=== PATIENT | male | born 1965 | race Caucasian/White ===

== ENCOUNTER 2017-11-30 17:09 | Inpatient (IN) ==
[2017-11-30] MEDS ORDERED: Vancomycin 1,500 MG in D5% in Water 250 ML IVPB STA (18:03)
[2017-11-30] MEDS ORDERED: Piperacillin/Tazobactam 3.375 GM in D5% in Water (Mini-Bag+) 100 ML IVPB ONE (18:03)
--- NOTE | 2017-11-30 18:08 | Emergency Department Note ---
Disposition Clinical Impression: Sepsis affecting skin, Cellulitis diffuse, face Disposition: Admitted As Inpatient Condition: Fair Time of Disposition: 19:02 General Adult HPI - General Chief complaint: ED General Medical Stated complaint: facial swelling, headache, chest pain, vision prob Time Seen by Provider: 11/30/17 17:49 Source: patient Limitations: no limitations Nursing Notes Reviewed: Yes Vital Signs Reviewed: Yes - History of Present Illness HPI Narrative: 52-year-old male complains of skin irritation to his face. Patient complains of swelling and redness across both cheeks and his nose. Patient states symptoms started 3 days ago. Patient noticed some irritation on the bridge of his nose where his glasses sit, and that changed to a painful rash across his face and below his lower eyelids over the next day. Patient states he went to his PCP and was directed to place topical antibiotic ointment and follow up in 48 hours if symptoms worsen. Patient comes in with complaints of facial pain, myalgias and fever. Patient states the pain to his face is 8/10 and worse with palpation. Patient has a history of one stent two years ago secondary to [place], currently not on anticoagulants Pain Scale: 8 - Related Data Home Medications Medication Instructions Recorded Confirmed Aspirin [Lo-Dose Aspirin EC] 81 mg PO DAILY 12/01/17 12/01/17 Atorvastatin Calcium [Lipitor] 80 mg PO DAILY 12/01/17 12/01/17 Pantoprazole Sodium [Protonix] 40 mg PO DAILY 12/01/17 12/01/17 Allergies Allergy/AdvReac Type Severity Reaction Status Date / Time No Known Allergies Allergy Unverified 06/24/16 02:24 All systems ED: reviewed and negative except as stated. Review of Systems: As Per HPI Constitutional: Reports: fever. Denies: chills Eyes: Denies: vision change ENT ED: Denies: congestion Cardiovascular: Denies: chest pain, palpitations Respiratory: Denies: cough, dyspnea, wheezes Gastrointestinal: Reports: nausea. Denies: abdominal pain, vomiting, diarrhea Genitourinary: Denies: urgency Musculoskeletal: Denies: back pain, neck pain Neurological: Reports: headache Endocrine: Reports: fatigue Past Medical History - Past Medical History Attestation: Yes The following information was validated with the patient. Source: patient, nursing notes reviewed Medical history: Reports: myocardial infarction Psychiatric history: Reports: no psych history - Social History Smoking Status: Current every day smoker Smokeless Tobacco Status: No Alcohol use: Reports: none Drug use: Reports: none Physical Exam Vital Signs Temperature 101.3 F H 11/30/17 17:25 Pulse Rate 125 11/30/17 17:25 Respiratory Rate 22 11/30/17 17:25 Blood Pressure 144/84 11/30/17 17:25 O2 Sat by Pulse Oximetry 95 11/30/17 17:25 Temperature 101.3 F H 11/30/17 17:25 Pulse Rate 104 11/30/17 18:11 Respiratory Rate 18 11/30/17 18:11 Blood Pressure 143/91 11/30/17 18:11 O2 Sat by Pulse Oximetry 96 11/30/17 18:11 Oxygen Delivery Oxygen Delivery Room Air 52-year-old male who is alert and oriented 3. GCS of 15. Patient is febrile to 101.3 degrees Fahrenheit, tachycardic with a respiratory rate of 22. SIRS positive, source of infection facial cellulitis. Area over bilateral cheeks and nose erythematous with singh crusting across the nose. There is tenderness to palpation - General Limitations: no limitations General appearance: alert, in no apparent distress - Head Head exam: atraumatic, normocephalic, normal inspection - Eye Eye exam: Present: normal appearance, PERRL, EOMI. Absent: scleral icterus, conjunctival injection, nystagmus, periorbital swelling - ENT ENT exam: normal exam, normal oropharynx, mucous membranes moist - Neck Neck exam: Present: normal inspection, full ROM, trachea midline - Chest Chest inspection: Present: normal inspection, symmetric chest wall rise - Respiratory Respiratory exam: Present: normal lung sounds bilaterally - Cardiovascular Cardiovascular exam: Present: tachycardia, normal heart sounds - Abdominal Exam Abdominal exam: Present: soft, Non-Tender. Absent: tenderness, distention, guarding, rebound, rigidity - Extremities Exam Extremities exam: Present: normal inspection, full ROM, normal capillary refill. Absent: tenderness, pedal edema - Back Exam Back exam: Present: normal inspection, full ROM. Absent: tenderness, CVA tenderness (R), CVA tenderness (L) - Neurological Exam Neurological exam: Present: alert, oriented X3 - Skin Skin exam: Present: warm, dry Course Vital Signs Temperature 101.3 F H 11/30/17 17:25 Pulse Rate 125 11/30/17 17:25 Respiratory Rate 22 11/30/17 17:25 Blood Pressure 144/84 11/30/17 17:25 O2 Sat by Pulse Oximetry 95 11/30/17 17:25 Temperature 98.4 F 12/01/17 13:01 Pulse Rate 74 12/01/17 13:01 Respiratory Rate 16 12/01/17 13:01 Blood Pressure 117/80 12/01/17 13:01 O2 Sat by Pulse Oximetry 95 12/01/17 13:01 Oxygen Delivery Oxygen Delivery Room Air Medical Decision Making - MDM Narrative Medical decision making narrative: Cellulitis to the face with underlying sepsis secondary to SIRS positivity with fever, tachycardia and tachypnea. Elevated WBC of 16.6 Cultures have been drawn, patient started on vancomycin and Zosyn. Labs drawn the lactate, CBC and chemistries to check for severity of sepsis. Lactic acid was negative for elevation. Patient is hyponatremic at 133 and was started on IV fluid hydration as well. Pt given 1 gram tylenol for pain control which appears to be sufficient at the time of reassessment. Pt currently has no complaints and is stable. Current plan is for admission which patient accepts. Dr. Lopez has accepted for admission 1839 hrs - Lab Data Result diagrams: 12/01/17 02:29 12/01/17 02:29 Lab Results 11/30/17 11/30/17 11/30/17 Range/Units 17:40 17:40 17:40 WBC 16.6 H (4.3-11.1) K/mcL RBC 5.23 (4.19-5.50) M/mcL Hgb 16.2 (12.9-16.9) g/dL Hct 46.8 (37.5-50.1) % MCV 89.5 (83.0-100.0) fL MCH 31.0 (28.0-33.3) pg MCHC 34.6 (31.6-35.5) g/dL RDW 12.5 (11.5-14.5) % Plt Count 209 (140-400) K/mcL MPV 11.1 (9.4-12.4) fL Immature Gran % 0.4 (0-4) % Seg Neutrophils % 78.8 % Lymphocytes % 10.5 % Monocytes % 10.0 % Eosinophils % 0.1 % Basophils % 0.2 % Neutrophils # 13.1 H (1.6-8.9) K/mcL Lymphocytes # 1.8 (0.6-4.6) K/mcL Monocytes # 1.7 H (0.0-1.3) K/mcL Eosinophils # 0.0 (0.0-0.6) K/mcL Basophils # 0.0 (0.0-0.2) K/mcL Sodium 133 L (136-145) mEq/L Potassium 3.9 (3.5-5.1) mEq/L Chloride 99 (98-107) mEq/L Carbon Dioxide 26 (23-29) mEq/L BUN 7 (6-20) mg/dL Creatinine 0.66 L (0.70-1.30) mg/dL Est GFR ( Amer) > 60 (> 60) Est GFR (Non-Af Amer) > 60 (> 60) BUN/Creatinine Ratio 11 (6-26) Glucose 107 H (70-105) mg/dL Calculated Osmolality 274 L (280-300) Lactic Acid 1.0 (0.5-2.2) mmol/L Calcium 9.5 (8.6-10.3) mg/dL Phosphorus 2.9 (2.7-4.5) mg/dL Magnesium 1.7 (1.6-2.6) mg/dL Total Bilirubin 1.0 (0.3-1.0) mg/dL Direct Bilirubin 0.2 (0.0-0.2) mg/dL Indirect Bilirubin 0.8 (0.0-1.2) mg/dL AST 18 (13-39) Units/L ALT 24 (7-52) Units/L Alkaline Phosphatase 98 (34-104) Units/L Troponin I (< 0.04) ng/mL Serum Total Protein 7.7 (6.4-8.9) g/dL Albumin 4.2 (3.5-5.7) g/dL Globulin 3.5 (2.4-3.5) g/dL Albumin/Globulin Ratio 1.2 (1.1-2.2) 11/30/17 Range/Units 17:40 WBC (4.3-11.1) K/mcL RBC (4.19-5.50) M/mcL Hgb (12.9-16.9) g/dL Hct (37.5-50.1) % MCV (83.0-100.0) fL MCH (28.0-33.3) pg MCHC (31.6-35.5) g/dL RDW (11.5-14.5) % Plt Count (140-400) K/mcL MPV (9.4-12.4) fL Immature Gran % (0-4) % Seg Neutrophils % % Lymphocytes % % Monocytes % % Eosinophils % % Basophils % % Neutrophils # (1.6-8.9) K/mcL Lymphocytes # (0.6-4.6) K/mcL Monocytes # (0.0-1.3) K/mcL Eosinophils # (0.0-0.6) K/mcL Basophils # (0.0-0.2) K/mcL Sodium (136-145) mEq/L Potassium (3.5-5.1) mEq/L Chloride (98-107) mEq/L Carbon Dioxide (23-29) mEq/L BUN (6-20) mg/dL Creatinine (0.70-1.30) mg/dL Est GFR ( Amer) (> 60) Est GFR (Non-Af Amer) (> 60) BUN/Creatinine Ratio (6-26) Glucose (70-105) mg/dL Calculated Osmolality (280-300) Lactic Acid (0.5-2.2) mmol/L Calcium (8.6-10.3) mg/dL Phosphorus (2.7-4.5) mg/dL Magnesium (1.6-2.6) mg/dL Total Bilirubin (0.3-1.0) mg/dL Direct Bilirubin (0.0-0.2) mg/dL Indirect Bilirubin (0.0-1.2) mg/dL AST (13-39) Units/L ALT (7-52) Units/L Alkaline Phosphatase (34-104) Units/L Troponin I < 0.03 (< 0.04) ng/mL Serum Total Protein (6.4-8.9) g/dL Albumin (3.5-5.7) g/dL Globulin (2.4-3.5) g/dL Albumin/Globulin Ratio (1.1-2.2) Attestation Statement - Attestation Attestation: I, David Hameed, examined this patient and my medical decision-making was reviewed with the PROFESSIONAL DRIVER/PA/Advanced Practice Nurse/Resident Physician. I agree with the documented findings, disposition and treatment plan as described except to the extent set forth below. 52-year-old male presents emergency Department with concerns of bilateral facial swelling, tachycardia, fever, nausea, vomiting. Patient states symptoms started with a small abrasion and erythema to the anterior nose however it soon spread to redness of the bilateral face. Symptoms do not involve the orbits and he has no pain with extraocular range of motion. Patient does have a generalized headache which has gradually progressed. He denies significant neck pain. No other cough, shortness of breath, diarrhea or other rashes. Patient likely has a cellulitis of his face, he meets SIRS criteria and will be admitted to the hospital on IV antibiotics.
[2017-11-30 18:13] LABS: Basophils % 0.2 %; Eosinophils % 0.1 %; Hematocrit 46.8 % (37.5-50.1); Hemoglobin 16.2 g/dL (12.9-16.9); Immature Granulocytes % 0.4 % (0-4); Lymphocytes # 1.8 K/mcL (0.6-4.6); Lymphocytes % 10.5 %; Mean Corpuscular HGB Conc 34.6 g/dL (31.6-35.5); Mean Corpuscular Volume 89.5 fL (83.0-100.0); Mean Platelet Volume 11.1 fL (9.4-12.4); Monocytes # 1.7 K/mcL (0.0-1.3); Neutrophils # 13.1 K/mcL (1.6-8.9); Platelet Count 209 K/mcL (140-400); Red Blood Count 5.23 M/mcL (4.19-5.50); Red Cell Distribution Width 12.5 % (11.5-14.5); Segmented Neutrophils % 78.8 %
[2017-11-30] MEDS: 0.9 % Sodium Chloride 1,000 ML IVC SCH ×2 (18:14→18:44)
[2017-11-30] MEDS ORDERED: Piperacillin/Tazobactam 3.375 GM in Water for inj. (sterile) 20 ML IVP ONE (18:26)
[2017-11-30 18:28] LABS: Alanine Aminotransferase 24 Units/L (7-52); Albumin 4.2 g/dL (3.5-5.7); Albumin/Globulin Ratio 1.2 (1.1-2.2); Alkaline Phosphatase 98 Units/L (34-104); Aspartate Amino Transferase 18 Units/L (13-39); BUN/Creatinine Ratio 11 (6-26); Bilirubin,Direct 0.2 mg/dL (0.0-0.2); Bilirubin,Indirect 0.8 mg/dL (0.0-1.2); Blood Urea Nitrogen 7 mg/dL (6-20); Calcium 9.5 mg/dL (8.6-10.3); Carbon Dioxide 26 mEq/L (23-29); Chloride 99 mEq/L (98-107); Globulin 3.5 g/dL (2.4-3.5); Glucose 107 mg/dL (70-105); Magnesium 1.7 mg/dL (1.6-2.6); Osmolality,Calculated 274 (280-300); Phosphorous 2.9 mg/dL (2.7-4.5); Potassium 3.9 mEq/L (3.5-5.1); Sodium 133 mEq/L (136-145); Total Protein 7.7 g/dL (6.4-8.9); eGFR For African Americans > 60 (> 60); eGFR For Non-African Americans > 60 (> 60)
[2017-11-30] MEDS ORDERED: Naloxone 0.4 MG/ML INJ IVP PRN (21:47)
[2017-11-30] MEDS ORDERED: Acetaminophen 325 MG TABLET PO PRN (21:47)
[2017-11-30] MEDS ORDERED: Ibuprofen 400 MG TABLET PO PRN (21:47)
[2017-11-30] MEDS ORDERED: *HR* Promethazine 25 MG/ML VIAL IVP PRN (21:47)
[2017-11-30] MEDS ORDERED: Vancomycin 1,250 MG in D5% in Water 250 ML IVPB SCH (22:00)
--- NOTE | 2017-11-30 22:11 | Internal Med History&Physical ---
Date of Encounter: 11/30/17 Time of Encounter: 21:30 Assessment and Plan (1) Cellulitis diffuse, face Current visit: Yes Status: Acute Acute cellulitis of the face that the pt. reports began on as irritation on his nose and spread to bilateral cheeks and upper lip. Pts. affected areas are erythematous and edematous. Pt. denies previous occurrence on face but reports previous cellulitis. PCP told pt. to apply topical abx ointment which did not help. CTA of the head and neck ordered. IVPB vancomycin pharmacy dosing and Zosyn 3.375 gm to 8 for infection coverage. Blood cultures 2. Urine culture. Abx coverage will be adjusted based on culture results if warranted. Alternate Tylenol and Motrin for fever control. Patient denies need for pain medication on exam. Urine tox screen ordered. Pt. discussed w/Dr. Quarles who is in agreement w/plan of care. Pt. is high risk for further morbidity and sepsis based on current sx, sepsis criteria, chest pain and hx of previous MT, and risk factors (hx and current tobacco abuse). Inpatient. (2) Sepsis affecting skin Current visit: Yes Status: Acute Sepsis criteria w/ WBC of 16.6, HR of 125, RR 22, temp of 101.3F, and infection from cellulitis of the face. Pt. given two 1L 0.9 NS IV fluid boluses in ED. Will continue IV fluids @125 mL/HR. Alternate Tylenol and Motrin for fever control. Pt. states on exam he doesn't want pain medication. Blood cultures x2. Urine culture. Urine tox screen. IVPB vancomycin with pharmacy dosing and Zosyn 3.375 gm every 8 hours for infection coverage. Will adjust abx coverage based on culture results. Continuous cardiac telemetry. Supplemental O2 w/titration and SpO2 monitoring. Monitor pt. and f/u labs. (3) Chest pain Current visit: Yes Status: Acute Acute chest pain that pt. describes as intermittent but cannot describe quality of the pain. Pt. has hx of previous MT in September 2014 w/stent placement x1. Initial troponin <0.03. Will trend x2. Aspirin. Nitroglycerin PRN. No recent cardiac work-up. Echocardiogram ordered. Continuous cardiac telemetry. Supplemental O2 w/titration and SpO2 monitoring. EKG today shows sinus rhythm with possible inferior myocardial infarction, probably old. Will consult cardiology if troponins or echocardiogram abnormal. Qualifiers: Chest pain type: other chest pain Qualified Code(s): R07.89 - Other chest pain; R07.8 - Other chest pain (4) Tobacco abuse Current visit: Yes Status: Chronic Hx of chronic tobacco abuse. Pt. reports smoking 1 PPD w/no intention of quitting currently. 14 mg nicotine patch ordered. (5) Previous myocardial infarction older than 8 weeks Current visit: Yes Status: Chronic Hx of previous MT in September 2014 w/stent placement x1. Pt. reports current intermittent chest pain. Continuous cardiac telemetry. Continue aspirin therapy. Echocardiogram ordered. EKG today shows sinus rhythm with possible inferior myocardial infarction, probably old. Initial troponin <0.03. Will trend x2. Will consult cardiology if troponin and/or echo results abnormal. (6) DVT prophylaxis Current visit: Yes Status: Acute Lovenox 40 mg 0600 daily for DVT prophylaxis. Monitor pt. for signs of bleeding. Internal Medicine - H&P: HPI Chief complaint: Facial swelling and pain Admitted From: Emergency Dept Plans for Post Hospital Care: Home History of present illness: Mr. Garcia is a 52 year old male with medical hx of previous myocardial infarction in September 2014 presents with the ED with chief complaint of facial swelling and pain, fever, and intermittent chest pain that began on . Patient states he noticed irritation on the bridge of his nose where his glasses rest which seems prudent to bilateral cheeks and around to his upper lip. Patient's PCP instructed him to use topical antibiotic ointment, but symptoms only worsened. Pain is 8/10 on palpation. Patient reports history of stent placement 1 from previous MT. Patient reports fever, SOB, and weakness but denies recent illness, chills, nausea, vomiting, diarrhea, constipation, changes in vision, palpitations, cough, abdominal pain, unusual bleeding, dizziness, lightheadedness, numbness, tingling, pre-syncope, or syncope. Past Med Surg Social Fam HX - Past Medical History Source: patient, old records reviewed Medical history: myocardial infarction (September 2014 w/stent x1) Psychiatric history: no psych history - Past Surgical History Surgical History: angioplasty/stent (x1) - Social History Smoking Status: Current every day smoker Packs per day: 1 PPD Smokeless Tobacco Status: No Alcohol use: none Drug use: none Current living situation: Home Activity Level: Independent ambulation Recent Out of Country Travel Within the Last 8 Weeks: No Exposure or Possible Exposure to Illness During Travel: No - Family History Father History Unknown: Yes Adopted: Yes Mother History Unknown: Yes Adopted: Yes Internal Medicine - H&P: Meds 3 Allergy/AdvReac Type Severity Reaction Status Date / Time No Known Allergies Allergy Unverified 06/24/16 02:24 All Systems PM: A 10-system review of systems was performed and is negative for pertinent findings except as documented above in the HPI. - Constitutional Constitutional: as per HPI, fever(s), weakness, no chills, no night sweats - EENT Eyes: no change in vision, no discharge, no pain, no photophobia Ears: no ear discharge, no ear pain, no tinnitus Nose, mouth and throat: as per HPI, facial pain, lip swelling, nose pain, no dysphagia, no nasal discharge, no neck pain, no sore throat - Breasts Breasts: as per HPI - Cardiovascular Cardiovascular ROS IM: no chest pain, no diaphoresis, no dyspnea, no lightheadedness, no palpitations, no syncope - Respiratory Respiratory: no cough, no dyspnea, no wheezing, no excessive phlegm production - Gastrointestinal Gastrointestinal: no abdominal pain, no diarrhea, no hematemesis, no hematochezia, no melena, no nausea, no vomiting - Genitourinary Genitourinary ROS male: as per HPI - Musculoskeletal Musculoskeletal ROS IM: no numbness, no tingling - Integumentary Integumentary IM: as per HPI, erythema (Bilateral cheeks, nose, and upper lip), no rash, no unusual bruising - Neurological Neurological ROS: as per HPI, weakness, no confusion, no convulsions, no focal weakness, no numbness, no tingling, no tremor(s) - Psychiatric Psychiatric: as per HPI - Endocrine Endocrine IM: as per HPI - Hematologic/Lymphatic Hematologic/Lymphatic: no easy bruising - Allergic/Immunologic Allergic/Immunologic: as per HPI - Constitutional Vitals: Temp Pulse Resp BP Pulse Ox 98.6 F 94 15 119/73 94 11/30/17 19:46 11/30/17 19:46 11/30/17 19:46 11/30/17 19:46 11/30/17 19:46 General appearance: Present: mild distress (Facial swelling and tenderness), A& O X 3, obese, answers questions appropriately - Head Head exam: Present: atraumatic, normocephalic Additional comments: Patient has facial edema and erythema of the bilateral cheeks, nose, and upper lip. - Eye Eye exam: Present: PERRL, conjuntiva pink, sclera anicteric Pupils: Present: PERRL - ENT ENT exam: Present: normal exam - Neck Neck exam general surgery: Present: normal inspection, supple, trachea midline. Absent: lymphadenopathy - Respiratory Respiratory exam: Present: CTAB. Absent: accessory muscle use, rales, rhonchi, wheezes - Cardiovascular Cardiovascular exam: Present: +S1, +S2, tachycardia. Absent: diastolic murmur, gallop, rubs, systolic murmur - GI/Abdominal GI/Abdominal exam: Present: normal bowel sounds, soft, no peritoneal signs. Absent: distended, tenderness - Rectal Rectal exam: Present: deferred - Additional comments: exam deferred. - Extremities Exam Extremities exam: Present: warm, radial pulses palpable and symmetrical. Absent : calf tenderness, cyanotic, pedal edema - Back Exam Back exam: Present: normal inspection - Neurological Exam Neurological exam: Present: alert, CN II-XII intact, oriented X3, no focal deficits. Absent: pronater drift, facial droop, speech deficit - Psychiatric Psychiatric exam: Present: flat affect - Skin Skin exam: Present: dry, erythema (Erythema and edema of the bilateral cheeks, nose, and upper lip), intact Internal Med - H&P Results - Labs CBC & Chem 7: 11/30/17 17:40 11/30/17 17:40 - EKG Data EKG shows normal: sinus rhythm Rate: tachycardia - EKG Data Prior EKG available for review: no Interpretation IM: suggestive of ischemia EKG comments: 11/30/17 22:23 EKG dated 11/30/17 shows sinus rhythm and possible inferior myocardial infarction, probably old.
[2017-11-30] MEDS ORDERED: Nitroglycerin 0.4 MG TAB.SUBL SL PRN (22:27)
[2017-11-30 23:30] LABS: Bilirubin,Urine Negative (Negative); Blood,Urine Negative (Negative); Clarity,Urine Clear (Clear); Color,Urine Yellow (Yellow); Glucose,Urine (UA) Normal (Normal); Ketones,Urine Negative (Negative); Leukocyte Esterase,Urine Negative (Negative); Nitrite,Urine Negative (Negative); Protein,Urine Negative (Neg-Trace); Specific Gravity,Urine < 1.005 (1.010-1.025); Urobilinogen,Urine Normal (Normal)
[2017-12-01] MEDS ORDERED: Piperacillin/Tazobactam 3.375 GM/200 ML BAG IVPB SCH
[2017-12-01] MEDS: Aspirin Enteric Coated 81 MG Tablet PO SCH ×2 (01:32→15:18)
[2017-12-01] MEDS: Nicotine 14 MG PATCH.TD24 TD SCH ×2 (01:33→10:11)
[2017-12-01] MEDS: 0.9 % Sodium Chloride 1,000 ML IVC SCH ×3 (01:34→11:46)
[2017-12-01] MEDS: Piperacillin/Tazobactam 3.375 GM/200 ML BAG IVPB SCH ×3 (02:17→18:22)
[2017-12-01 02:40] LABS: Basophils % 0.3 %; Eosinophils # 0.1 K/mcL (0.0-0.6); Eosinophils % 0.5 %; Hematocrit 41.6 % (37.5-50.1); Immature Granulocytes % 0.3 % (0-4); Lymphocytes # 1.9 K/mcL (0.6-4.6); Lymphocytes % 16.9 %; Mean Corpuscular HGB Conc 34.1 g/dL (31.6-35.5); Mean Corpuscular Hemoglobin 31.1 pg (28.0-33.3); Mean Platelet Volume 10.7 fL (9.4-12.4); Monocytes # 1.4 K/mcL (0.0-1.3); Monocytes % 12.7 %; Neutrophils # 7.7 K/mcL (1.6-8.9); Platelet Count 176 K/mcL (140-400); Red Blood Count 4.57 M/mcL (4.19-5.50); Red Cell Distribution Width 12.7 % (11.5-14.5); Segmented Neutrophils % 69.3 %
[2017-12-01 02:42] LABS: Hemoglobin 14.2 g/dL (12.9-16.9)
[2017-12-01 03:00] LABS: Alanine Aminotransferase 18 Units/L (7-52); Albumin 3.6 g/dL (3.5-5.7); Albumin/Globulin Ratio 1.3 (1.1-2.2); Alkaline Phosphatase 77 Units/L (34-104); Aspartate Amino Transferase 15 Units/L (13-39); BUN/Creatinine Ratio 10 (6-26); Bilirubin,Total 0.8 mg/dL (0.3-1.0); Blood Urea Nitrogen 7 mg/dL (6-20); Calcium 8.6 mg/dL (8.6-10.3); Carbon Dioxide 26 mEq/L (23-29); Chloride 105 mEq/L (98-107); Chol/HDL Ratio 4.2 (0-4.9); Cholesterol 104 mg/dL (< 200); Globulin 2.8 g/dL (2.4-3.5); Glucose 106 mg/dL (70-105); HDL Cholesterol 25 mg/dL (40-59); LDL Cholesterol,Calculated 58 mg/dL (0-99); Osmolality,Calculated 286 (280-300); Potassium 3.9 mEq/L (3.5-5.1); Sodium 139 mEq/L (136-145); Total Protein 6.4 g/dL (6.4-8.9); Triglycerides 106 mg/dL (< 150); eGFR For African Americans > 60 (> 60); eGFR For Non-African Americans > 60 (> 60)
[2017-12-01 04:22] LABS: Amphetamine Screen,Urine Negative ng/mL (Cutoff=1000); Barbiturate Screen,Urine Negative ng/mL (Cutoff=200); Benzodiazepines Screen,Urine Negative ng/mL (Cutoff=200); Cannabinoid Screen,Urine Negative ng/mL (Cutoff = 50); Cocaine Screen,Urine Negative ng/mL (Cutoff= 300); Opiate Screen,Urine Negative ng/mL (Cutoff=300); Phencyclidine Screen,Urine Negative ng/mL (Cutoff=25)
[2017-12-01] MEDS: Vancomycin 1,250 MG in D5% in Water 250 ML IVPB SCH ×2 (05:58→18:21)
[2017-12-01] MEDS: *HR* Enoxaparin 40 MG/0.4 ML SYRINGE SQ SCH (10:10)
--- NOTE | 2017-12-01 15:48 | Internal Med Progress Note ---
Date of Encounter: 12/01/17 Time of Encounter: 14:00 - Assessment and plan (1) Sepsis affecting skin Current Visit: Yes Status: Acute Assessment and plan: Discomfort. On arrival. Elevated white count, tachycardia, tachypnea and fever with known cellulitis to face. Was given IV fluid boluses in the emergency room. Blood cultures were drawn 2. Tachypnea and tachycardia have resolved. Patient has been afebrile. White count is resolving, 11.2 today. Lactic acid is within normal limits. Continue IV vancomycin with pharmacy dosing Continue IV Zosyn Continue telemetry Narrow on antibiotics in regards to culture (2) Cellulitis diffuse, face Current Visit: Yes Status: Acute Assessment and plan: Patient reports redness and swelling 3 days ago. States it began as just a little irritation on his nose and spread bilateral cheeks and upper lip. Area of cellulitis extends from eyes to upper lip. Nothing on chin and her forehead. Pelvic care physician and instructed patient to apply antibiotic ointment to his face. He received no improvement. Soft tissue neck CT and face CT negative for abscess or fluid collections. Continue IV vancomycin and Zosyn as stated above. Pain control. Face CT 12/01/17 21:59 IMPRESSION: Extensive facial soft tissue swelling without evidence for abscess. D/ / Cliff Sandhu MD / Cliff Sandhu MD Interpreting Provider: Cliff Sandhu MD Soft Tissue Neck CT 12/01/17 21:59 IMPRESSION: Consistent with facial cellulitis. No fluid collection or deep tissue involvement. D/ / Fabrice Ramirez MD / Fabrice Ramirez MD Interpreting Provider: Fabrice Ramirez MD (3) Chest pain Current Visit: Yes Status: Acute Assessment and plan: Patient with intermittent left chest pain. no radiation. No nausea or vomiting, no diaphoresis or shortness of breath. It is not reproducible with palpation, movement, or deep inspiration. [place] in 2010 with stent placement. Currently troponins are negative, no chest x-ray was ordered. EKG has not been completed. Stress ordered for morning. Cardiac diet Continue telemetry EKG pending Chest x-ray pending Echocardiogram completed and pending. Qualifiers: Chest pain type: other chest pain Qualified Code(s): R07.89 - Other chest pain; R07.8 - Other chest pain (4) DVT prophylaxis Current Visit: Yes Status: Acute Assessment and plan: Lovenox subcutaneous (5) Tobacco abuse Current Visit: Yes Status: Chronic Assessment and plan: Smoking cessation counseling completed. Nicotine patch ordered for inpatient. (6) Previous myocardial infarction older than 8 weeks Current Visit: Yes Status: Chronic Assessment and plan: [place] in September, with stent placement. Chest pain onset yesterday, lasted approximately 10 minutes. Pain was midsternal with no radiation. Patient is a very poor historian unable to describe the quality of the pain. Echocardiogram completed today. EKG has been ordered. Patient denies pain now. No aggravating factor, alleviating factor was arrest. Continue telemetry Continue aspirin, patient is not on a beta leland. Nitroglycerin for chest pain. Monitor labs and vitals. - Time Spent With Patient less than 15 minutes - Subjective Interval history: The patient was seen and assessed at bedside at 1400. He does not appear to be in any distress, however he is noticeably uncomfortable. He is lying with a wet washcloth over his eyes. Speech is difficult to understand due to lip swelling. Patient denies vision changes, neck pain. He denies headache, dizziness, abdominal pain, chest pain, nausea, vomiting or diarrhea. He reports that his pain is well controlled and is aware that he may ask for more pain medication if needed. - Constitutional Vitals: Temp Pulse Resp BP Pulse Ox 98.4 F 74 16 117/80 95 12/01/17 13:01 12/01/17 13:01 12/01/17 13:01 12/01/17 13:01 12/01/17 13:01 General appearance: Present: cooperative, mild distress (Facial swelling and tenderness), A&O X 3, pleasant, obese, answers questions appropriately - Head Head exam: Present: atraumatic, normal inspection, normocephalic - Eye Eye exam: Present: normal appearance, conjuntiva pink, sclera anicteric - Neck Neck exam general surgery: Present: supple, trachea midline. Absent: lymphadenopathy, tenderness - Respiratory Respiratory exam: Present: CTAB. Absent: accessory muscle use, chest wall tenderness, rales, respiratory distress, rhonchi, wheezes - Cardiovascular Cardiovascular exam: Present: RRR, +S1, +S2. Absent: diastolic murmur, gallop, rubs, systolic murmur - GI/Abdominal GI/Abdominal exam: Present: normal bowel sounds, soft. Absent: distended, hepatomegaly, tenderness - Extremities Exam Extremities exam: Present: normal capillary refill, normal inspection, warm, radial pulses palpable and symmetrical. Absent: calf tenderness, cyanotic, pedal edema - Neurological Exam Neurological exam: Present: alert, oriented X3, no focal deficits. Absent: facial droop, speech deficit - Skin Skin exam: Present: dry, intact, normal color, warm. Absent: rash Internal Medicine: Result - Labs CBC & Chem 7: 12/01/17 02:29 12/01/17 02:29 Labs: Short CBC 12/01/17 Range/Units 02:29 WBC 11.2 H (4.3-11.1) K/mcL Hgb 14.2 D (12.9-16.9) g/dL Hct 41.6 (37.5-50.1) % Plt Count 176 (140-400) K/mcL Neutrophils # 7.7 (1.6-8.9) K/mcL BMP 12/01/17 02:29 Sodium 139 Potassium 3.9 Chloride 105 Carbon Dioxide 26 BUN 7 Creatinine 0.70 Glucose 106 H Calcium 8.6 Cardiac Enzymes 11/30/17 12/01/17 Range/Units 23:51 02:29 Troponin I < 0.03 < 0.03 (< 0.04) ng/mL Liver Function 12/01/17 Range/Units 02:29 Total Bilirubin 0.8 (0.3-1.0) mg/dL AST 15 (13-39) Units/L ALT 18 (7-52) Units/L Alkaline Phosphatase 77 (34-104) Units/L Albumin 3.6 (3.5-5.7) g/dL Urine 11/30/17 Range/Units 23:08 Urine Color Yellow (Yellow) Urine Clarity Clear (Clear) Urine pH 7.0 (5.0-8.0) pH Units Ur Specific [place] < 1.005 L (1.010-1.025) Urine Protein Negative (Neg-Trace) mg/dL Urine Glucose (UA) Normal (Normal) mg/dL - Impressions Impressions Face CT 12/01/17 21:59 IMPRESSION: Extensive facial soft tissue swelling without evidence for abscess. D/ / Cliff Sandhu MD / Cliff Sandhu MD Interpreting Provider: Cliff Sandhu MD Soft Tissue Neck CT 12/01/17 21:59 IMPRESSION: Consistent with facial cellulitis. No fluid collection or deep tissue involvement. D/ / Fabrice Ramirez MD / Fabrice Ramirez MD Interpreting Provider: Fabrice Ramirez MD Consult Discharge Plan - Plan Referrals: NONE,PCP [Primary Care Provider] -
[2017-12-02] MEDS: 0.9 % Sodium Chloride 1,000 ML IVC SCH ×3 (00:02→15:24)
[2017-12-02] MEDS: Piperacillin/Tazobactam 3.375 GM/200 ML BAG IVPB SCH ×3 (02:06→19:35)
[2017-12-02] MEDS: Vancomycin 1,250 MG in D5% in Water 250 ML IVPB SCH (05:01)
[2017-12-02] MEDS: *HR* Enoxaparin 40 MG/0.4 ML SYRINGE SQ SCH (05:02)
[2017-12-02 05:48] LABS: Basophils % 0.4 %; Eosinophils # 0.2 K/mcL (0.0-0.6); Eosinophils % 1.7 %; Hematocrit 42.3 % (37.5-50.1); Hemoglobin 14.2 g/dL (12.9-16.9); Immature Granulocytes % 0.4 % (0-4); Lymphocytes % 19.8 %; Mean Corpuscular HGB Conc 33.6 g/dL (31.6-35.5); Mean Corpuscular Hemoglobin 30.7 pg (28.0-33.3); Mean Corpuscular Volume 91.6 fL (83.0-100.0); Mean Platelet Volume 11.3 fL (9.4-12.4); Monocytes # 1.2 K/mcL (0.0-1.3); Monocytes % 11.8 %; Neutrophils # 6.8 K/mcL (1.6-8.9); Platelet Count 183 K/mcL (140-400); Red Blood Count 4.62 M/mcL (4.19-5.50); Red Cell Distribution Width 12.8 % (11.5-14.5); Segmented Neutrophils % 65.9 %
[2017-12-02 06:05] LABS: Alanine Aminotransferase 20 Units/L (7-52); Albumin 3.6 g/dL (3.5-5.7); Albumin/Globulin Ratio 1.3 (1.1-2.2); Alkaline Phosphatase 80 Units/L (34-104); Aspartate Amino Transferase 16 Units/L (13-39); BUN/Creatinine Ratio 10 (6-26); Bilirubin,Total 0.5 mg/dL (0.3-1.0); Blood Urea Nitrogen 8 mg/dL (6-20); Carbon Dioxide 27 mEq/L (23-29); Chloride 108 mEq/L (98-107); Globulin 2.8 g/dL (2.4-3.5); Glucose 91 mg/dL (70-105); Osmolality,Calculated 288 (280-300); Sodium 140 mEq/L (136-145); Total Protein 6.4 g/dL (6.4-8.9); eGFR For African Americans > 60 (> 60); eGFR For Non-African Americans > 60 (> 60)
[2017-12-02] MEDS ORDERED: Vancomycin 1,500 MG in D5% in Water 250 ML IVPB SCH (06:45)
[2017-12-02] MEDS: Aspirin Enteric Coated 81 MG Tablet PO SCH (08:25)
[2017-12-02] MEDS: Nicotine 14 MG PATCH.TD24 TD SCH (08:26)
--- NOTE | 2017-12-02 11:58 | Infectious Disease Consult ---
Date of Encounter: 12/02/17 Time of Encounter: 11:55 Assessment and Plan (1) Sepsis affecting skin Status: Resolved Assessment and plan: The patient had four SIRS criteria on admission. Likely secondary to facial cellulitis. Improved. Tachycardia, tachypnea, and leukocytosis have resolved. The patient has been afebrile x 48 hours. Blood cultures drawn 11/30/17 are NGTD x 2 sets. (2) Cellulitis diffuse, face Status: Acute Assessment and plan: Location: Bilateral cheeks, nose, periorbital region. Causative organism unclear. Etiology unclear: sinusitis vs. intra-nasal sores vs. other. Appears improved from patient's report. CT of the face and neck shows extensive soft tissue swelling, but no abscess or orbital cellulitis. Blood cultures are NGTD so far. Continue Vancomycin IV. Pharmacy to dose. Goal trough ~10. The patient continues to be subtherapeutic, which could be contributing to his slow response to antibiotic therapy. Dose adjusted by pharmacy. Continue Zosyn 3.375 grams IV Q8H. Duration of treatment depends on the clinical picture. Monitor renal function and for drug toxicity and dose-adjust antibiotics. (3) Tobacco abuse Status: Chronic Infectious Disease HPI - Data of Consult Patient: new to practice Consult date: 12/02/17 Requesting Physician: Lucho Rodriguez Primary Care Provider: PCP NONE - Consult Narrative Reason for consult: Facial cellulitis History of present illness: Mr. Garcia is a 52 year old male with a past medical history of NC. The patient was admitted to the hospital 11/30/17 for facial cellulitis. We are consulted for antibiotic recommendations for facial cellulitis. Briefly, the patient is a 52 year old male with a past medical history as stated below. He reports that last Saturday evening he noticed that the bridge of his nose was a little sore. He thought it may be due to his glasses so he saw his forensic medical examiner on that gave him new glasses pads. He states the pain worsened and spread to his entire nose so on Saturday, he attempted to see his PCP, but was told by the nurse to put triple ATB ointment on it and if it did not improve to come back for an appt with the doctor. The pain continued to worsen and the patient developed redness and swelling of the bilateral eyes, nose, and cheek and he presented to the ER on Saturday. On arrival, the patient was febrile, tachycardic, tachypneic, and had leukocytosis with neutrophilic predominance. Blood cultures were drawn x 2 sets and the patient was started on IV antibiotics and admitted for further evaluation. After admission, the patient failed to improve so a CT scan of the face and neck were done that revealed extensive soft-tissue swelling of the face, but no abscess. His WBC has normalized and the patient has been afebrile. Currently, the patient is on IV Vanc and Zosyn. We've been asked to evaluate and make further recommendations. During my exam today, the patient states that he feels a little better overall and reports that the swelling seems to be improving. He reports the skin feels dry, but is minimally painful. He denies any fevers, chills, or rigors. Reports a frontal headache that seems to be improving. Reports some dizziness upon standing. Denies weakness. Reports some green/yellow nasal discharge recently without overt congestion. Denies facial or dental pain. Reports a chronic history of intra-nasal sores that he describes as ingrown hairs and states he did have one about a week ago. Denies sore throat or earache. Reports myalgias with onset of symptoms, but states these have resolved. Denies shortness of breath or cough. Denies nausea, vomiting, or diarrhea. Denies appetite changes, abdominal pain, or urinary complaints. Denies oral thrush or other skin changes except as stated above. The patient lives at home alone. He has one dog. He smokes a pack of cigarettes per day. Denies alcohol or illicit drug use. Denies travel outside the [facility]. He works at the [employer] and [employer] for [employer]. CC: Lucho Rodriguez Past Med Surg Social Fam HX - Past Medical History Attestation: Yes The following information was validated with the patient. Source: patient, old records reviewed, nursing notes reviewed Medical history: myocardial infarction Psychiatric history: no psych history - Past Surgical History Surgical History: angioplasty/stent (x1) - Social History Smoking Status: Current every day smoker Packs per day: 1 PPD Smokeless Tobacco Status: No Alcohol use: none Drug use: none Occupational status: employed ([place] [employer] Current living situation: Home - Independent Activity Level: Independent ambulation Recent Out of Country Travel Within the Last 8 Weeks: No Exposure or Possible Exposure to Illness During Travel: No - Family History Father History Unknown: Yes Adopted: Yes Mother History Unknown: Yes Adopted: Yes Infectious Disease-CN:Meds Aspirin [Lo-Dose Aspirin EC] 81 mg PO DAILY 12/01/17 [History] Atorvastatin Calcium [Lipitor] 80 mg PO DAILY 12/01/17 [History] Pantoprazole Sodium [Protonix] 40 mg PO DAILY 12/01/17 [History] 3 Allergy/AdvReac Type Severity Reaction Status Date / Time No Known Allergies Allergy Unverified 06/24/16 02:24 All systems: reviewed and no additional remarkable complaints except as stated Exam - Constitutional Vitals: Temp Pulse Resp BP Pulse Ox 98.5 F 85 20 135/86 94 12/02/17 11:21 12/02/17 11:21 12/02/17 11:21 12/02/17 11:21 12/02/17 11:21 General appearance: average body habitus, cooperative, no acute distress - Head Head exam: Present: atraumatic, normal inspection, normocephalic - Eye Eye exam: Present: EOMI, normal appearance, PERRL Pupils: Present: normal accommodation - ENT ENT exam: Present: mucous membranes moist Additional comments: Erythema with scaling of the skin noted to the bilateral zygomatic arches and nose. No open lesion noted. Periorbital areas bilaterally with trace edema and mild erythema. - Neck Neck exam: Present: normal inspection. Absent: lymphadenopathy - Respiratory Respiratory exam: Present: CTAB. Absent: rales, respiratory distress, rhonchi, wheezes - Cardiovascular Cardiovascular exam: Present: RRR, +S1, +S2 - GI/Abdominal GI/Abdominal exam: Present: normal bowel sounds, soft. Absent: distended, tenderness - Extremities Exam Extremities exam: Present: normal inspection. Absent: joint swelling, pedal edema, tenderness - Back Exam Back exam: Present: normal inspection. Absent: paraspinal tenderness, vertebral tenderness - Neurological Exam Neurological exam: Present: alert, oriented X3, no focal deficits - Psychiatric Psychiatric exam: Present: normal affect, normal mood - Skin Skin exam: Present: dry, erythema (Facial, as described above.), intact, normal color, warm Infectious Disease CN: Results - Labs CBC & Chem 7: 12/02/17 05:01 12/02/17 05:01 Serology: Serology 11/30/17 Range/Units 23:08 Urine Color Yellow (Yellow) Urine Clarity Clear (Clear) Urine pH 7.0 (5.0-8.0) pH Units Ur Specific [place] < 1.005 L (1.010-1.025) Urine Protein Negative (Neg-Trace) mg/dL Urine Glucose (UA) Normal (Normal) mg/dL Urine Ketones Negative (Negative) mg/dL Urine Blood Negative (Negative) Urine Nitrite Negative (Negative) Urine Bilirubin Negative (Negative) Urine Urobilinogen Normal (Normal) mg/dL Ur Leukocyte Esterase Negative (Negative) Ur Culture Indicated? NO (NO) Consult Discharge Plan - Plan Referrals: NONE,PCP [Primary Care Provider] - - Attending Attestation I examined this patient and my medical decision-making was reviewed with the Resident Physician. I agree with the documented findings, disposition and treatment plan as described except to the extent set forth below. Briefly patient is a 21-year-old gentleman with coronary artery disease with history of NC in the past was admitted to the hospital with facial cellulitis. Patient denies any trauma but states he gets these ulcerations on his nose. Patient was evaluated as an outpatient and was told to take triple antibiotics ointment which did not help. No cultures were obtained. Patient showed up to the emergency department on Saturday with sepsis like picture including fever, tachycardia and leukocytosis. Patient had a CT scan of the face and neck which revealed cellulitis but no abscesses and no sinusitis. Patient was started on vancomycin and Zosyn and seems to be doing better clinically. At this point, patient clinically continues to improve. Vancomycin is subtherapeutic and the patient has no more service criteria. Causative organism not clear. Continue IV antibiotics while in-house, on discharge switch him to clindamycin to finish his 7-10 day course. Patient might benefit from probiotics while on clindamycin and monitor for any signs of diarrhea.
--- NOTE | 2017-12-02 13:54 | Internal Med Progress Note ---
Date of Encounter: 12/02/17 Time of Encounter: 08:50 - Assessment and plan (1) Sepsis affecting skin Current Visit: Yes Status: Resolved Assessment and plan: Sepsis resolved. Continue IV vancomycin with pharmacy dosing Continue IV Zosyn Continue telemetry Narrow on antibiotics in regards to culture (2) Cellulitis diffuse, face Current Visit: Yes Status: Acute Assessment and plan: Patient reports redness and swelling, onset 3 days ago. Now extends from upper lip to eyebrows. Forehead and chin unaffected. Unknown etiology. Blood cultures are negative x 2 sets. Sepsis criteria have resolved. Soft tissue neck CT and face CT negative for abscess or fluid collections. ID on board, I appreciate their recommendations and consultation. Continue IV vancomycin and Zosyn. Monitor renal function and vanco trough. Pain control. Face CT 12/01/17 21:59 IMPRESSION: Extensive facial soft tissue swelling without evidence for abscess. D/ / Cliff Sandhu MD / Cliff Sandhu MD Interpreting Provider: Cliff Sandhu MD Soft Tissue Neck CT 12/01/17 21:59 IMPRESSION: Consistent with facial cellulitis. No fluid collection or deep tissue involvement. D/ / Fabrice Ramirez MD / Fabrice Ramirez MD Interpreting Provider: Fabrice Ramirez MD (3) Chest pain Current Visit: Yes Status: Acute Assessment and plan: Patient with intermittent left chest pain without radiation. No nausea or vomiting, no diaphoresis or shortness of breath. It is not reproducible with palpation, movement, or deep inspiration. [place] in 2010 with stent placement. Troponins are negative, chest xray negative. Echo LVEF of 60%, normal LV diastolic function and no significant valvular dysfunction. Pt refused stress test this am. Cardiac diet Continue telemetry Treat chest pain with nitroglycerin. Qualifiers: Chest pain type: other chest pain Qualified Code(s): R07.89 - Other chest pain; R07.8 - Other chest pain (4) DVT prophylaxis Current Visit: Yes Status: Acute Assessment and plan: Lovenox subcutaneous daily. Pt is ambulatory. (5) Tobacco abuse Current Visit: Yes Status: Chronic Assessment and plan: Nicotine patch ordered for inpatient. (6) Previous myocardial infarction older than 8 weeks Current Visit: Yes Status: Chronic Assessment and plan: Per history. Plan as above. - Time Spent With Patient less than 15 minutes - Subjective Interval history: The patient was seen and assessed at bedside at 0850am. Patient continues to deny vision changes, neck pain. He denies headache, dizziness, abdominal pain, chest pain, nausea, vomiting or diarrhea. He states that his pain is still well controlled. Pt also reports that he is irritated this a.m. He states that if we are not able to treat him that he wants to be transferred. He has a dog at home that has not been let outside and that needs to be fed. He refused his stress test this a.m. stating it is not his heart and we are not going to order unnecessary tests. I encouraged brian to have the stress due to his history and age, he refused stress test. - Constitutional Vitals: Temp Pulse Resp BP Pulse Ox 98.5 F 85 20 135/86 94 12/02/17 11:21 12/02/17 11:21 12/02/17 11:21 12/02/17 11:21 12/02/17 11:21 General appearance: Present: cooperative, mild distress (Facial swelling and tenderness), A&O X 3, pleasant, no acute distress, obese, answers questions appropriately - Head Head exam: Present: atraumatic, normal inspection, normocephalic - Eye Eye exam: Present: normal appearance, conjuntiva pink, sclera anicteric - Neck Neck exam general surgery: Present: supple, trachea midline. Absent: lymphadenopathy, tenderness - Respiratory Respiratory exam: Present: CTAB. Absent: accessory muscle use, chest wall tenderness, decreased breath sounds, rales, respiratory distress, rhonchi, wheezes - Cardiovascular Cardiovascular exam: Present: RRR, +S1, +S2. Absent: diastolic murmur, gallop, rubs, systolic murmur - GI/Abdominal GI/Abdominal exam: Present: normal bowel sounds, soft. Absent: distended, hepatomegaly, tenderness - Extremities Exam Extremities exam: Present: normal capillary refill, normal inspection, warm, radial pulses palpable and symmetrical. Absent: calf tenderness, cyanotic, pedal edema - Neurological Exam Neurological exam: Present: alert, oriented X3, no focal deficits. Absent: facial droop, speech deficit - Skin Skin exam: Present: dry, intact, normal color, warm. Absent: rash Internal Medicine: Result - Labs CBC & Chem 7: 12/02/17 05:01 12/02/17 05:01 Labs: Short CBC 12/02/17 Range/Units 05:01 WBC 10.3 (4.3-11.1) K/mcL Hgb 14.2 (12.9-16.9) g/dL Hct 42.3 (37.5-50.1) % Plt Count 183 (140-400) K/mcL Neutrophils # 6.8 (1.6-8.9) K/mcL BMP 12/02/17 05:01 Sodium 140 Potassium 4.0 Chloride 108 H Carbon Dioxide 27 BUN 8 Creatinine 0.78 Glucose 91 Calcium 9.0 Liver Function 12/02/17 Range/Units 05:01 Total Bilirubin 0.5 (0.3-1.0) mg/dL AST 16 (13-39) Units/L ALT 20 (7-52) Units/L Alkaline Phosphatase 80 (34-104) Units/L Albumin 3.6 (3.5-5.7) g/dL - Impressions Impressions Echocardiogram 11/30/17 22:28 Impressions: LVEF 60%. Normal left ventricular diastolic function. Normal right ventricular structure and function. No significant valvular dysfunction. No pulmonary hypertension. Left Ventricular Wall Motion: Rest Echo Findings All wall segments showed normal motion. Findings: Study Quality * Technically adequate exam. ECG Findings * Normal sinus rhythm. Left Ventricle * LVEF 60%. * Normal LV chamber size, wall thickness and function. * Normal left ventricular diastolic function. Right Ventricle * Normal right ventricular structure and function. Left Atrium * Normal left atrial size. Right Atrium * Normal right atrial size. Aortic Valve * No aortic regurgitation. * Trileaflet aortic valve. * No aortic stenosis. Mitral Valve * Normal mitral valve structure. * No mitral regurgitation. * No mitral stenosis. Tricuspid Valve * No tricuspid regurgitation. * Normal tricuspid valve structure. * Estimated RA pressure is 3 mmHg. * Estimated RVSP is 18 mmHg. * No pulmonary hypertension. Pulmonic Valve * Pulmonic valve is not well visualized. * No pulmonic stenosis. * No pulmonic regurgitation. Pulmonary Artery * Pulmonary artery not well visualized. Aorta * Normally sized aortic root. * Ascending aorta is not well visualized. Pericardium * There is no pericardial effusion present. Interatrial Septum * No evidence of PFO by color Doppler. IVC * Normal IVC dimensions and inspiratory collapse. Chest X-Ray 12/01/17 16:17 IMPRESSION: No acute cardiopulmonary disease. D/ / Emilio Waldrop MD / Emilio Waldrop MD Interpreting Provider: Emilio Waldrop MD Consult Discharge Plan - Plan Referrals: NONE,PCP [Primary Care Provider] -
[2017-12-02] MEDS: Vancomycin 1,750 MG in D5% in Water 500 ML IVPB SCH (17:44)
[2017-12-03] MEDS: 0.9 % Sodium Chloride 1,000 ML IVC SCH (01:28)
[2017-12-03] MEDS: Piperacillin/Tazobactam 3.375 GM/200 ML BAG IVPB SCH ×2 (02:44→11:34)
[2017-12-03 05:34] LABS: Basophils % 0.4 %; Eosinophils # 0.2 K/mcL (0.0-0.6); Eosinophils % 2.5 %; Hematocrit 41.2 % (37.5-50.1); Hemoglobin 14.1 g/dL (12.9-16.9); Immature Granulocytes % 0.3 % (0-4); Lymphocytes # 2.1 K/mcL (0.6-4.6); Lymphocytes % 27.6 %; Mean Corpuscular HGB Conc 34.2 g/dL (31.6-35.5); Mean Corpuscular Hemoglobin 31.2 pg (28.0-33.3); Mean Corpuscular Volume 91.2 fL (83.0-100.0); Mean Platelet Volume 10.9 fL (9.4-12.4); Monocytes # 0.8 K/mcL (0.0-1.3); Monocytes % 10.7 %; Neutrophils # 4.5 K/mcL (1.6-8.9); Platelet Count 189 K/mcL (140-400); Red Blood Count 4.52 M/mcL (4.19-5.50); Red Cell Distribution Width 12.7 % (11.5-14.5); Segmented Neutrophils % 58.5 %
[2017-12-03] MEDS: *HR* Enoxaparin 40 MG/0.4 ML SYRINGE SQ SCH (05:34)
[2017-12-03] MEDS: Vancomycin 1,750 MG in D5% in Water 500 ML IVPB SCH (05:34)
[2017-12-03 05:54] LABS: Alanine Aminotransferase 21 Units/L (7-52); Albumin 3.5 g/dL (3.5-5.7); Albumin/Globulin Ratio 1.2 (1.1-2.2); Alkaline Phosphatase 78 Units/L (34-104); Aspartate Amino Transferase 17 Units/L (13-39); BUN/Creatinine Ratio 8 (6-26); Bilirubin,Total 0.4 mg/dL (0.3-1.0); Blood Urea Nitrogen 6 mg/dL (6-20); Carbon Dioxide 28 mEq/L (23-29); Chloride 109 mEq/L (98-107); Globulin 2.9 g/dL (2.4-3.5); Glucose 94 mg/dL (70-105); Osmolality,Calculated 289 (280-300); Potassium 3.8 mEq/L (3.5-5.1); Sodium 141 mEq/L (136-145); Total Protein 6.4 g/dL (6.4-8.9); eGFR For African Americans > 60 (> 60); eGFR For Non-African Americans > 60 (> 60)
[2017-12-03] MEDS: Nicotine 14 MG PATCH.TD24 TD SCH (08:43)
[2017-12-03] MEDS: Aspirin Enteric Coated 81 MG Tablet PO SCH (08:44)
--- NOTE | 2017-12-03 11:17 | Infectious Disease Progress No ---
Date of Encounter: 12/03/17 Time of Encounter: 11:15 - Assessment and Plan (1) Sepsis affecting skin Current Visit: Yes Status: Resolved The patient had four SIRS criteria on admission. Likely secondary to facial cellulitis. Improved. Tachycardia, tachypnea, and leukocytosis have resolved. The patient has been afebrile. Blood cultures drawn 11/30/17 are NGTD x 2 sets. (2) Cellulitis diffuse, face Current Visit: Yes Status: Acute Location: Bilateral cheeks, nose, periorbital region. Causative organism unclear. Etiology unclear: sinusitis vs. intra-nasal sores vs. other. Appears improved from patient's report. CT of the face and neck shows extensive soft tissue swelling, but no abscess or orbital cellulitis. Blood cultures are NGTD so far. Continue Vancomycin IV. Pharmacy to dose. Goal trough ~10. The patient continues to be subtherapeutic, which could be contributing to his slow response to antibiotic therapy. Dose adjusted by pharmacy. Continue Zosyn 3.375 grams IV Q8H. Duration of treatment depends on the clinical picture, but would recommend a total of 10 days. Can switch to clindamycin 300mg PO Q8H. Monitor renal function and for drug toxicity and dose-adjust antibiotics. (3) Tobacco abuse Current Visit: Yes Status: Chronic - Subjective Interval history: Patient seen and examined. No acute events noted overnight. Patient resting quietly in bed. States he feels better and would like to go home. Denies fevers , chills, or rigors. Denies headache, neck pain, or dizziness. States the facial pain and swelling seem to be better. Denies chest pain, shortness of breath, or cough. Denies nausea, vomiting, or constipation. Reports two loose stools today. Denies abdominal pain, urinary complaints, or appetite changes. Denies oral thrush or new skin lesions. Infect Dis PN-Objective Data - Labs CBC & Chem 7: 12/03/17 05:15 12/03/17 05:15 Labs: Laboratory Results - last 24 hr 12/03/17 12/03/17 05:15 05:15 WBC 7.8 RBC 4.52 Hgb 14.1 Hct 41.2 MCV 91.2 MCH 31.2 MCHC 34.2 RDW 12.7 Plt Count 189 MPV 10.9 Immature Gran % 0.3 Seg Neutrophils % 58.5 Lymphocytes % 27.6 Monocytes % 10.7 Eosinophils % 2.5 Basophils % 0.4 Neutrophils # 4.5 Lymphocytes # 2.1 Monocytes # 0.8 Eosinophils # 0.2 Basophils # 0.0 Sodium 141 Potassium 3.8 Chloride 109 H Carbon Dioxide 28 BUN 6 Creatinine 0.72 Est GFR ( Amer) > 60 Est GFR (Non-Af Amer) > 60 BUN/Creatinine Ratio 8 Glucose 94 Calculated Osmolality 289 Calcium 9.0 Total Bilirubin 0.4 AST 17 ALT 21 Alkaline Phosphatase 78 Serum Total Protein 6.4 Albumin 3.5 Globulin 2.9 Albumin/Globulin Ratio 1.2 Cultures: Serology 11/30/17 Range/Units 23:08 Urine Color Yellow (Yellow) Urine Clarity Clear (Clear) Urine pH 7.0 (5.0-8.0) pH Units Ur Specific [place] < 1.005 L (1.010-1.025) Urine Protein Negative (Neg-Trace) mg/dL Urine Glucose (UA) Normal (Normal) mg/dL Urine Ketones Negative (Negative) mg/dL Urine Blood Negative (Negative) Urine Nitrite Negative (Negative) Urine Bilirubin Negative (Negative) Urine Urobilinogen Normal (Normal) mg/dL Ur Leukocyte Esterase Negative (Negative) Ur Culture Indicated? NO (NO) - Impressions Impressions Soft Tissue Neck CT 12/01/17 21:59 IMPRESSION: Consistent with facial cellulitis. No fluid collection or deep tissue involvement. D/ / Fabrice Ramirez MD / Fabrice Ramirez MD Interpreting Provider: Fabrice Ramirez MD Exam - Constitutional Vitals: Temp Pulse Resp BP Pulse Ox 98.2 F 70 16 120/78 94 12/03/17 08:18 12/03/17 08:18 12/03/17 08:18 12/03/17 08:18 12/03/17 08:18 General appearance: average body habitus, cooperative, no acute distress - Head Head exam: Present: atraumatic, normal inspection, normocephalic - Eye Eye exam: Present: EOMI, normal appearance, PERRL Pupils: Present: normal accommodation Additional comments: Periorbital swelling and erythema improved. - ENT ENT exam: Present: mucous membranes moist Additional comments: Facial erythema and swelling across the bilateral cheeks and nose improved. Skin dry and peeling. No open lesions. - Neck Neck exam: Present: normal inspection - Respiratory Respiratory exam: Present: CTAB. Absent: rales, respiratory distress, rhonchi, wheezes - Cardiovascular Cardiovascular exam: Present: RRR, +S1, +S2 - GI/Abdominal GI/Abdominal exam: Present: normal bowel sounds, soft. Absent: distended, tenderness - Extremities Exam Extremities exam: Present: normal inspection. Absent: joint swelling, pedal edema, tenderness - Neurological Exam Neurological exam: Present: alert, oriented X3, no focal deficits - Psychiatric Psychiatric exam: Present: normal affect, normal mood - Skin Skin exam: Present: dry, intact, normal color, warm Consult Discharge Plan - Plan Instructions: Clindamycin (By mouth), Cellulitis (DC), Periorbital Cellulitis in Adults (DC) Referrals: NONE,PCP [Primary Care Provider] - (Please call your PCP within 24 hours or the next business day to schedule follow-up appt) [facility],PCP [Non-Partnered Physician] - 12/05/17 1:45 pm Prescriptions: Clindamycin HCl 300 mg PO Q8H #18 capsule - Attending Attestation I examined this patient and my medical decision-making was reviewed with the Resident Physician. I agree with the documented findings, disposition and treatment plan as described except to the extent set forth below.
[2017-12-03] MEDS ORDERED: Neosporin OINT 15 GM TUBE TP PRN (12:17)
[2017-12-03 12:48] VITALS: BP 118/63
--- NOTE | 2017-12-03 13:17 | Discharge Summary ---
Date of Encounter: 12/03/17 Time of Encounter: 13:20 - Discharge Diagnosis (1) Cellulitis diffuse, face Priority: Primary Status: Acute Comments: to bilateral cheeks, nose, periorbital region. CT of the face and neck shows extensive soft tissue swelling, but no abscess or orbital cellulitis. Causative organism unclear. Evaluated by ID who noted possible sinusitis or intra-nasal sores. Initially treated with IV Vanco, Zosyn. Patient subjectively and clinically improved significantly. Discharge home on clindamycin for a total of 10 days per ID recommendations. Follow-up with PCP (2) Sepsis affecting skin Priority: Primary Status: Resolved Comments: with tachycardia, tachypnea, and leukocytosis on admission (HR 120s, RR 22, WBC 16K). Lactic acid normal. Secondary to facial cellulitis. Sepsis resolved with IV fluids and ATB - Discharge Medications Prescriptions: Clindamycin HCl 300 mg PO Q8H #18 capsule Home Medications: Aspirin [Lo-Dose Aspirin EC] 81 mg PO DAILY 12/01/17 [History] Atorvastatin Calcium [Lipitor] 80 mg PO DAILY 12/01/17 [History] Pantoprazole Sodium [Protonix] 40 mg PO DAILY 12/01/17 [History] Clindamycin HCl 300 mg PO Q8H #18 capsule 12/03/17 [Rx] Allergies/Adverse Reactions: 3 Allergy/AdvReac Type Severity Reaction Status Date / Time No Known Allergies Allergy Unverified 06/24/16 02:24 Procedures/tests Complete & Pending: Procedures Performed prior 72 hours Category Date Time Status CT facial bones w con [CT] Stat Cat Scan 12/01/17 21:[address] soft tissue neck w con [CT] Stat Cat Scan 12/01/17 21:59 Completed EKG [ECG 12 lead ECG] [ECG] Stat Y 12/01/17 16:06 Ordered EV echocardiogram Routine Y 11/30/17 22:28 Completed Date of admission: 11/30/17 21:47 Primary care physician: PCP NONE Consults: 12/02/17 12:53 Consult to Infectious Diseases [CONS] Routine Consulting Provider: [facility] [place] Reason for Consult: Facial cellulitis Time Notified: 12:53 Call Completed: Yes Discharging clinician: Marilu Ramirez Anticipated date of discharge: 12/03/17 - Patient Status Disposition: Home, Self-Care Condition: Fair Functional capacity at discharge: independent ambulation Overall status at discharge: patient is progressing back to baseline - Discharge Instructions Instructions: Cellulitis (DC), Periorbital Cellulitis in Adults (DC), Clindamycin (By mouth) Follow Up With: NONE,PCP [Primary Care Provider] - (Please call your PCP within 24 hours or the next business day to schedule follow-up appt) - Diet and Activity Activity: increase activity as tolerated Diet: advance to your usual diet Interval History: Seen and examined at bedside, meyoent is new to me. Information obtained from chart review and patient report. Patient says he feels significantly better and wants to discharge home today, Still has some facial swelling and redness but overall improved. No eye pain, no active drainage. No SOB Hospital course: See assessment and plan for hospital course - Time Spent with Patient Total time spent providing and/or coordinating discharge services: Less than 30 minutes - Constitutional Vitals: Temp Pulse Resp BP Pulse Ox 99.3 F 67 18 118/63 96 12/03/17 12:45 12/03/17 12:45 12/03/17 12:45 12/03/17 12:45 12/03/17 12:45 General appearance: Present: cooperative, A&O X 3, pleasant, no acute distress, obese, answers questions appropriately - Head Head exam: Present: atraumatic, normocephalic - Eye Eye exam: Present: PERRL, conjuntiva pink, sclera anicteric Pupils: Present: PERRL - Neck Neck exam general surgery: Present: supple, trachea midline. Absent: lymphadenopathy - Respiratory Respiratory exam: Present: CTAB. Absent: accessory muscle use, rales, rhonchi, wheezes - Cardiovascular Cardiovascular exam: Present: RRR, +S1, +S2. Absent: diastolic murmur, gallop, rubs, systolic murmur - GI/Abdominal GI/Abdominal exam: Present: normal bowel sounds, soft, no peritoneal signs. Absent: distended, tenderness - Extremities Exam Extremities exam: Present: warm, radial pulses palpable and symmetrical. Absent : calf tenderness, cyanotic, pedal edema - Neurological Exam Neurological exam: Present: CN II-XII intact, oriented X3, no focal deficits. Absent: pronater drift, facial droop, speech deficit - Skin Skin exam: Present: dry, intact Additional comments: facial erythema and swelling
[2017-12-03] MEDS ORDERED: Aminoglycoside Consult 1 EACH MC ONE (15:07)
--- NOTE | 2017-12-04 07:52 | Electrocardiograph Report ---
[address] [place] [address] Test Date: 2017-11-30 Pat Name: Fede Garcia Department: 102 Room: 3B22 Gender: M Casualty Underwriter: Nancy : 1965 Requested By: David Hameed Order Number: [id number] Reading MD: Mika Rboerts MD Measurements Intervals [place] Rate: 95 P: 67 NC: 152 QRS: 13 QRSD: 88 T: 36 QT: 343 QTc: 395 Interpretive Statements SINUS RHYTHM INFERIOR MYOCARDIAL INFARCTION, PROBABLY OLD Electronically Signed On 12-04-2017 5:46:16 EST by Mika Roberts MD
== END 2017-12-03 15:08 | disposition home or self-care (01) | DRG 872 ==
LOC: EMEROO 17:09 → 3ANU 17:09 → 2SOUTHHOLD 12-01 01:23 → 3BNU 12-01 11:16
PROVIDERS: ADMIT Hospitalist; ATTEND Hospitalist

== ENCOUNTER 2018-06-17 12:12 | Observation (INO) ==
[2018-06-17] MEDS ORDERED: 0.9 % Sodium Chloride 1,000 ML IVC ONE (13:05)
[2018-06-17] MEDS ORDERED: Ondansetron 4 MG/2 ML VIAL IVP ONE (13:05)
--- NOTE | 2018-06-17 13:11 | Emergency Department Note ---
Disposition Clinical Impression: Epigastric pain, Elevated bilirubin, Thickening of wall of gallbladder Disposition: Admitted As Inpatient Condition: Undetermined Time of Disposition: 15:43 Dizziness HPI - General Chief Complaint: ED Dizziness Stated Complaint: chest pain, unable to eat, dizziness Time Seen by Provider: 06/17/18 12:50 Source: patient Mode of arrival: ambulatory Limitations: no limitations Nursing Notes Reviewed: Yes Vital Signs Reviewed: Yes - History of Present Illness HPI Narrative: 53-year-old male with history of NM, arrives to the ED complaining of multiple complaints but the patient's primary complaint is dizziness. The patient states that he has not been feeling well the past couple days and been having increased by mouth intake. The patient states that he has had some nausea and vomiting. He states that he is so nauseated he is unable to eat any food or drink any fluids. The patient states he is tachycardia mucous membranes as well. The patien admits to some intermittent chest pain. No associated dyspnea and states this is very different than his previous NM back in 2013. The patient denies any other complaints at this time. He is resting comfortably in the room. The patient denies any abdominal discomfort but does complain of bilateral lower lumbar pain over the past few weeks. He denies any other complaints at this time including difficulty breathing, abdominal pain, diarrhea, melena, hematochezia. - Related Data Home Medications Medication Instructions Recorded Confirmed Aspirin [Lo-Dose Aspirin EC] 81 mg PO DAILY 12/01/17 06/17/18 Atorvastatin Calcium [Lipitor] 80 mg PO DAILY 12/01/17 06/17/18 Pantoprazole Sodium [Protonix] 40 mg PO DAILY 12/01/17 06/17/18 Allergies Allergy/AdvReac Type Severity Reaction Status Date / Time No Known Allergies Allergy Verified 06/17/18 15:53 All systems ED: reviewed and negative except as stated. Constitutional: Denies: fever, chills, weakness ENT ED: Denies: dysphagia Cardiovascular: Reports: chest pain. Denies: dyspnea on exertion, edema Respiratory: Denies: cough, dyspnea, sputum production Gastrointestinal: Reports: nausea, vomiting. Denies: abdominal pain, diarrhea, constipation, hematemesis, melena, hematochezia Genitourinary: Denies: urgency, dysuria, frequency, hematuria, discharge, testicular pain Musculoskeletal: Reports: back pain, myalgia. Denies: neck pain, arthralgia Integumentary: Denies: rash Neurological: Denies: headache Past Medical History - Past Medical History Attestation: Yes The following information was validated with the patient. Source: patient, old records reviewed Medical history: Reports: hypertension, myocardial infarction Surgical history: Reports: angioplasty/stent (x1) Psychiatric history: Reports: no psych history - Social History Smoking Status: Current every day smoker Smokeless Tobacco Status: No Alcohol use: Reports: none Drug use: Reports: none Physical Exam - General Limitations: no limitations General appearance: alert, in no apparent distress - Head Head exam: atraumatic, normocephalic, normal inspection - Eye Eye exam: Present: normal appearance, PERRL, EOMI - ENT ENT exam: normal exam, normal oropharynx, mucous membranes moist - Neck Neck exam: Present: normal inspection, full ROM, trachea midline - Chest Chest inspection: Present: normal inspection, symmetric chest wall rise - Respiratory Respiratory exam: Present: normal lung sounds bilaterally - Cardiovascular Cardiovascular exam: Present: regular rate, normal rhythm, normal heart sounds - Abdominal Exam Abdominal exam: Present: soft, Non-Tender. Absent: tenderness, distention, guarding, rebound, rigidity, pulsatile mass, hernia - Extremities Exam Extremities exam: Present: normal inspection, full ROM. Absent: tenderness, pedal edema - Back Exam Back exam: Present: normal inspection, full ROM. Absent: tenderness - Neurological Exam Neurological exam: Present: alert, oriented X3 - Skin Skin exam: Present: warm Course - Consultations Consultation #1: Patient case discussed with Dr. Pulido due to patient's ultrasound revealing concerns for cholecystitis with elevated hepatic and biliary enzymes. Dr. Pulido did not feel as though this was a surgical case was more concerned about hepatitis. He recommended consultation to gastroenterology. Time: 15:38 Vital Signs Temperature 98.2 F 06/17/18 12:16 Pulse Rate 89 06/17/18 12:16 Respiratory Rate 18 06/17/18 12:16 Blood Pressure 134/87 06/17/18 12:16 O2 Sat by Pulse Oximetry 97 06/17/18 12:16 Temperature 98.2 F 06/17/18 12:16 Pulse Rate 89 06/17/18 12:16 Respiratory Rate 18 06/17/18 12:16 Blood Pressure 134/87 06/17/18 12:16 O2 Sat by Pulse Oximetry 97 06/17/18 12:16 Oxygen Delivery Oxygen Delivery Room Air Dizziness - MDM Narrative Medical decision making narrative: Patient's workup in the emergency department demonstrates findings consistent with elevated biliary enzymes. The patient's right upper quadrant ultrasound reveals circumferential gallbladder wall thickening. No gallstones or biliary dilation. We spoke with Dr. Pulido in surgery who recommended that we get a hepatitis panel consult GI and did not feel this was a surgical issue. The patient will be admitted to the hospital at this time. Dr. Barrow in gastroenterology recommended MRCP. We will convey this to the hospitalist. Consultation to GI was placed. The patient was made aware that he will be admitted to the hospital at this time and agrees to plan of care. No further questions or concerns noted. The patient was given 3.375 g of Zosyn. Accepted by Dr. Vásquez. - Lab Data Lab results reviewed: Yes I reviewed the patient's lab results. Result diagrams: 06/17/18 12:44 06/17/18 12:44 Lab Results 06/17/18 06/17/18 06/17/18 Range/Units 12:44 12:44 13:10 WBC 6.1 (4.3-11.1) K/mcL RBC 4.95 (4.19-5.50) M/mcL Hgb 15.6 (12.9-16.9) g/dL Hct 44.6 (37.5-50.1) % MCV 90.1 (83.0-100.0) fL MCH 31.5 (28.0-33.3) pg MCHC 35.0 (31.6-35.5) g/dL RDW 13.6 (11.5-14.5) % Plt Count 132 L (140-400) K/mcL MPV 11.6 (9.4-12.4) fL Immature Gran % 0.3 (0-4) % Seg Neutrophils % 67.7 % Lymphocytes % 18.9 % Monocytes % 12.2 % Eosinophils % 0.7 % Basophils % 0.2 % Neutrophils # 4.1 (1.6-8.9) K/mcL Lymphocytes # 1.2 (0.6-4.6) K/mcL Monocytes # 0.7 (0.0-1.3) K/mcL Eosinophils # 0.0 (0.0-0.6) K/mcL Basophils # 0.0 (0.0-0.2) K/mcL Reactive Lymphocytes Present A (Not Present) Platelet Estimate Slight Decrease L (Normal) VBG pH (7.32-7.42) pH Units VBG pCO2 (41-51) mmHg VBG pO2 (25-50) mmHg VBG HCO3 (21-27) mEq/L Sodium 134 L (136-145) mEq/L Potassium 3.6 (3.5-5.1) mEq/L Chloride 97 L (98-107) mEq/L Carbon Dioxide 31 H (23-29) mEq/L BUN 6 (6-20) mg/dL Creatinine 0.76 (0.70-1.30) mg/dL Est GFR ( Amer) > 60 (> 60) Est GFR (Non-Af Amer) > 60 (> 60) BUN/Creatinine Ratio 8 (6-26) Glucose 98 (70-105) mg/dL Calculated Osmolality 276 L (280-300) Calcium 9.2 (8.6-10.3) mg/dL Total Bilirubin 4.0 H (0.3-1.0) mg/dL Direct Bilirubin 2.6 H (0.0-0.2) mg/dL Indirect Bilirubin 1.4 H (0.0-1.2) mg/dL AST 1552 H (13-39) Units/L ALT > 500 H (7-52) Units/L Alkaline Phosphatase 275 H (34-104) Units/L Troponin I < 0.03 (< 0.04) ng/mL Serum Total Protein 7.2 (6.4-8.9) g/dL Albumin 3.9 (3.5-5.7) g/dL Globulin 3.3 (2.4-3.5) g/dL Albumin/Globulin Ratio 1.2 (1.1-2.2) Lipase 48 (11-82) Units/L Urine Color Dark Yellow (Yellow) Urine Clarity Cloudy A (Clear) Urine pH 6.5 (5.0-8.0) pH Units Ur Specific [place] < 1.005 L (1.010-1.025) Urine Protein Trace (Neg-Trace) mg/dL Urine Glucose (UA) Normal (Normal) mg/dL Urine Ketones Negative (Negative) mg/dL Urine Blood Negative (Negative) Urine Nitrite Negative (Negative) Urine Bilirubin Moderate H (Negative) Urine Urobilinogen Normal (Normal) mg/dL Ur Leukocyte Esterase Trace H (Negative) Urine Microscopic RBC 0-3 (0-3) per hpf Urine Microscopic WBC 0-3 (0-3) per hpf Ur Squamous Epith Cells Few (None-Few) per lpf Urine Bacteria None Seen (None-Few) per hpf Hyaline Casts None Seen (None-Few) per lpf Ur Culture Indicated? YES A (NO) 06/17/18 Range/Units 13:10 WBC (4.3-11.1) K/mcL RBC (4.19-5.50) M/mcL Hgb (12.9-16.9) g/dL Hct (37.5-50.1) % MCV (83.0-100.0) fL MCH (28.0-33.3) pg MCHC (31.6-35.5) g/dL RDW (11.5-14.5) % Plt Count (140-400) K/mcL MPV (9.4-12.4) fL Immature Gran % (0-4) % Seg Neutrophils % % Lymphocytes % % Monocytes % % Eosinophils % % Basophils % % Neutrophils # (1.6-8.9) K/mcL Lymphocytes # (0.6-4.6) K/mcL Monocytes # (0.0-1.3) K/mcL Eosinophils # (0.0-0.6) K/mcL Basophils # (0.0-0.2) K/mcL Reactive Lymphocytes (Not Present) Platelet Estimate (Normal) VBG pH 7.41 (7.32-7.42) pH Units VBG pCO2 46 (41-51) mmHg VBG pO2 41 (25-50) mmHg VBG HCO3 29 H (21-27) mEq/L Sodium (136-145) mEq/L Potassium (3.5-5.1) mEq/L Chloride (98-107) mEq/L Carbon Dioxide (23-29) mEq/L BUN (6-20) mg/dL Creatinine (0.70-1.30) mg/dL Est GFR ( Amer) (> 60) Est GFR (Non-Af Amer) (> 60) BUN/Creatinine Ratio (6-26) Glucose (70-105) mg/dL Calculated Osmolality (280-300) Calcium (8.6-10.3) mg/dL Total Bilirubin (0.3-1.0) mg/dL Direct Bilirubin (0.0-0.2) mg/dL Indirect Bilirubin (0.0-1.2) mg/dL AST (13-39) Units/L ALT (7-52) Units/L Alkaline Phosphatase (34-104) Units/L Troponin I (< 0.04) ng/mL Serum Total Protein (6.4-8.9) g/dL Albumin (3.5-5.7) g/dL Globulin (2.4-3.5) g/dL Albumin/Globulin Ratio (1.1-2.2) Lipase (11-82) Units/L Urine Color (Yellow) Urine Clarity (Clear) Urine pH (5.0-8.0) pH Units Ur Specific [place] (1.010-1.025) Urine Protein (Neg-Trace) mg/dL Urine Glucose (UA) (Normal) mg/dL Urine Ketones (Negative) mg/dL Urine Blood (Negative) Urine Nitrite (Negative) Urine Bilirubin (Negative) Urine Urobilinogen (Normal) mg/dL Ur Leukocyte Esterase (Negative) Urine Microscopic RBC (0-3) per hpf Urine Microscopic WBC (0-3) per hpf Ur Squamous Epith Cells (None-Few) per lpf Urine Bacteria (None-Few) per hpf Hyaline Casts (None-Few) per lpf Ur Culture Indicated? (NO) - Radiology Data Radiology results reviewed: Yes I reviewed the patient's radiology results. Chest X-Ray 06/17/18 12:18 IMPRESSION: Unremarkable chest radiograph. D/ / Bryan Azar / Bryan Azar Interpreting Provider: Bryan Azar Gallbladder Ultrasound 06/17/18 14:10 IMPRESSION: Circumferential gallbladder wall thickening raises concern for cholecystitis. Nuclear medicine hepatobiliary scintigraphy could be performed for evaluation of acute versus chronic cholecystitis if clinically warranted. No gallstones or biliary dilation seen. D/ / Natalio Fontenot MD / Natalio Fontenot MD Interpreting Provider: Natalio Fontenot MD - EKG Data EKG attestation: Yes I reviewed and interpreted this EKG. EKG results narrative: Heart rate 85 beats for minute. Normal sinus rhythm. No ST elevation or ST depression noted. No acute changes noted. Attestation Statement - Attestation Attestation: I examined this patient and my medical decision-making was reviewed with the Resident Physician. I agree with the documented findings, disposition and treatment plan as described except to the extent set forth below. Findings consistent with possible acute cholecystitis versus hepatitis. We have consult to general surgery and they feel that this patient would warrant GI consultation prior to surgical consultation. Surgery and GI abdomen consult at. The patient will be admitted for further management. Antibiotics were initiated. It is possible that this does represent cholecystitis given the findings of postprandial symptoms and upper abdominal pain as well as nausea however the absence of stones and agree of transaminitis suggests possible hepatitis. We will obtain acute hepatitis panel. The patient be admitted for further management.
[2018-06-17 13:13] LABS: VBG HCO3 29 mEq/L (21-27); VBG PCO2 46 mmHg (41-51); VBG PH 7.41 pH Units (7.32-7.42); VBG PO2 41 mmHg (25-50)
[2018-06-17 13:16] LABS: Basophils % 0.2 %; Eosinophils % 0.7 %; Hematocrit 44.6 % (37.5-50.1); Hemoglobin 15.6 g/dL (12.9-16.9); Immature Granulocytes % 0.3 % (0-4); Lymphocytes # 1.2 K/mcL (0.6-4.6); Lymphocytes % 18.9 %; Mean Corpuscular Hemoglobin 31.5 pg (28.0-33.3); Mean Corpuscular Volume 90.1 fL (83.0-100.0); Mean Platelet Volume 11.6 fL (9.4-12.4); Monocytes # 0.7 K/mcL (0.0-1.3); Monocytes % 12.2 %; Neutrophils # 4.1 K/mcL (1.6-8.9); Platelet Count 132 K/mcL (140-400); Red Blood Count 4.95 M/mcL (4.19-5.50); Red Cell Distribution Width 13.6 % (11.5-14.5); Segmented Neutrophils % 67.7 %
[2018-06-17 13:26] LABS: Bilirubin,Urine Moderate (Negative); Blood,Urine Negative (Negative); Clarity,Urine Cloudy (Clear); Color,Urine Dark Yellow (Yellow); Glucose,Urine (UA) Normal (Normal); Ketones,Urine Negative (Negative); Leukocyte Esterase,Urine Trace (Negative); Nitrite,Urine Negative (Negative); PH,Urine 6.5 pH Units (5.0-8.0); Protein,Urine Trace mg/dL (Neg-Trace); Specific Gravity,Urine < 1.005 (1.010-1.025); Urobilinogen,Urine Normal (Normal)
[2018-06-17 13:28] LABS: Bacteria,Urine None Seen per hpf (None-Few); Hyaline Casts,Urine None Seen per lpf (None-Few); RBC,Urine 0-3 per hpf (0-3); Squamous Epithelial Cell,Urine Few per lpf (None-Few); WBC,Urine 0-3 per hpf (0-3)
[2018-06-17 13:43] LABS: Platelet Estimate Slight Decrease (Normal); Reactive Lymphocytes Present (Not Present)
[2018-06-17 13:56] LABS: Troponin I < 0.03 ng/mL (< 0.04)
[2018-06-17 13:58] LABS: Alanine Aminotransferase > 500 Units/L (7-52); Albumin 3.9 g/dL (3.5-5.7); Albumin/Globulin Ratio 1.2 (1.1-2.2); Alkaline Phosphatase 275 Units/L (34-104); BUN/Creatinine Ratio 8 (6-26); Bilirubin,Direct 2.6 mg/dL (0.0-0.2); Bilirubin,Indirect 1.4 mg/dL (0.0-1.2); Blood Urea Nitrogen 6 mg/dL (6-20); Calcium 9.2 mg/dL (8.6-10.3); Carbon Dioxide 31 mEq/L (23-29); Chloride 97 mEq/L (98-107); Globulin 3.3 g/dL (2.4-3.5); Glucose 98 mg/dL (70-105); Lipase 48 Units/L (11-82); Osmolality,Calculated 276 (280-300); Potassium 3.6 mEq/L (3.5-5.1); Sodium 134 mEq/L (136-145); Total Protein 7.2 g/dL (6.4-8.9); eGFR For Non-African Americans > 60 (> 60)
[2018-06-17 14:10] LABS: Aspartate Amino Transferase 1552 Units/L (13-39)
[2018-06-17] MEDS ORDERED: Piperacillin/Tazobactam 3.375 GM in 0.9 % Sodium Chloride Mini Bag 100 ML IVPB ONE (15:26)
[2018-06-17] MEDS ORDERED: Naloxone 0.4 MG/ML INJ IVP PRN (16:32)
--- NOTE | 2018-06-17 16:36 | Internal Med History&Physical ---
Date of Encounter: 06/17/18 Time of Encounter: 16:34 Internal Medicine - H&P: HPI Chief complaint: Dizziness, nausea and vomiting Admitted From: Emergency Dept Plans for Post Hospital Care: Home History of present illness: Mr. Garcia is a 53 year old male patient with history of prior [place] with 1 stent who presented to the ER with complaints of dizziness, nausea and vomiting. He does not remember exactly when his symptoms started but he reports having them for the past week. He denies any diarrhea. No epigastric or abdominal pain but he did have an episode of bilateral flank pain one week back prior to onset of his current symptoms. He also has been having intermittent chest tightness. No shortness of breath or palpitations. No fever or chills. No sick contacts. No prior episode of similar symptoms. Past Med Surg Social Fam HX - Past Medical History Attestation: Yes The following information was validated with the patient. Source: patient Medical history: hypertension, myocardial infarction Psychiatric history: no psych history - Past Surgical History Surgical History: angioplasty/stent (x1) - Social History Smoking Status: Current every day smoker Smokeless Tobacco Status: No Alcohol use: none Drug use: none - Family History Father Adopted: Yes Mother Adopted: Yes Internal Medicine - H&P: Meds Aspirin [Lo-Dose Aspirin EC] 81 mg PO DAILY 12/01/17 [History] Atorvastatin Calcium [Lipitor] 80 mg PO DAILY 12/01/17 [History] Pantoprazole Sodium [Protonix] 40 mg PO DAILY 12/01/17 [History] 3 Allergy/AdvReac Type Severity Reaction Status Date / Time No Known Allergies Allergy Verified 06/17/18 15:53 All Systems PM: A 10-system review of systems was performed and is negative for pertinent findings except as documented above in the HPI. - Constitutional Constitutional: fatigue, no chills, no fever(s), no night sweats - EENT Eyes: no change in vision, no discharge, no pain, no photophobia Ears: no ear discharge, no ear pain, no tinnitus Nose, mouth and throat: no dysphagia, no nasal discharge, no neck pain, no sore throat - Cardiovascular Cardiovascular ROS IM: lightheadedness, no chest pain, no diaphoresis, no dyspnea, no palpitations, no syncope - Respiratory Respiratory: no cough, no dyspnea, no wheezing, no excessive phlegm production - Gastrointestinal Gastrointestinal: nausea, vomiting, no abdominal pain, no diarrhea, no hematemesis, no hematochezia, no melena - Musculoskeletal Musculoskeletal ROS IM: no numbness, no tingling - Integumentary Integumentary IM: no rash, no unusual bruising - Neurological Neurological ROS: no confusion, no convulsions, no focal weakness, no numbness, no tingling, no tremor(s) - Hematologic/Lymphatic Hematologic/Lymphatic: no easy bruising - Constitutional Vitals: Temp Pulse Resp BP Pulse Ox 98.2 F 89 18 134/87 97 06/17/18 12:16 06/17/18 12:16 06/17/18 12:16 06/17/18 12:16 06/17/18 12:16 General appearance: Present: cooperative, mild distress, A&O X 3, answers questions appropriately - ENT ENT exam: Present: mucous membranes dry - Neck Neck exam general surgery: Present: supple, trachea midline. Absent: lymphadenopathy - Respiratory Respiratory exam: Present: CTAB. Absent: accessory muscle use, rales, rhonchi, wheezes - Cardiovascular Cardiovascular exam: Present: RRR, +S1, +S2. Absent: diastolic murmur, gallop, rubs, systolic murmur - GI/Abdominal GI/Abdominal exam: Present: normal bowel sounds, soft, no peritoneal signs. Absent: distended, tenderness - Extremities Exam Extremities exam: Present: warm, radial pulses palpable and symmetrical. Absent : calf tenderness, cyanotic, pedal edema - Neurological Exam Neurological exam: Present: CN II-XII intact, oriented X3, no focal deficits. Absent: facial droop, speech deficit - Skin Skin exam: Present: dry, intact Internal Med - H&P Results - Labs CBC & Chem 7: 06/17/18 12:44 06/17/18 12:44 - Impressions Impressions Chest X-Ray 06/17/18 12:18 IMPRESSION: Unremarkable chest radiograph. D/ / Bryan Azar / Bryan Azar Interpreting Provider: Bryan Azar Gallbladder Ultrasound 06/17/18 14:10 IMPRESSION: Circumferential gallbladder wall thickening raises concern for cholecystitis. Nuclear medicine hepatobiliary scintigraphy could be performed for evaluation of acute versus chronic cholecystitis if clinically warranted. No gallstones or biliary dilation seen. D/ / Natalio Fontenot MD / Natalio Fontenot MD Interpreting Provider: Natalio Fontenot MD - Assessment and plan (1) Obstructive jaundice Current Visit: Yes Status: Suspected Assessment and plan: Patient has elevated liver enzymes, alkaline phosphatase and total bilirubin with prominent direct fraction. Concerning for obstructive jaundice. Will get MRCP. GI consulted. We will follow recommendations. Keep nothing by mouth while awaiting results. IV fluids. (2) Hepatitis Current Visit: Yes Status: Acute Assessment and plan: Liver enzymes are severely elevated. Check hepatitis viral panel. Avoid further hepatotoxic agents. (3) Chest pain Current Visit: Yes Status: Acute Assessment and plan: Patient reports intermittent chest tightness. Will check troponins. Monitor with telemetry. Qualifiers: Chest pain type: other chest pain Qualified Code(s): R07.89 - Other chest pain; R07.8 - Other chest pain - Time Spent With Patient Total time spent is greater than 50% in coordination of care (as documented) at patient's floor/unit and/or counseling patient:
[2018-06-17] MEDS ORDERED: Ringers Solution, Lactated 1,000 ML IVC SCH (16:45)
[2018-06-17 16:53] LABS: Hepatitis B Surface Antigen Nonreactive (Nonreactive)
[2018-06-17] MEDS ORDERED: Ondansetron 4 MG/2 ML VIAL IVP PRN (17:00)
[2018-06-17 17:49] LABS: Acetaminophen < 10 mcg/mL (10-20); Salicylate < 2.5 mg/dL (15.0-30.0)
[2018-06-17 17:51] LABS: Troponin I < 0.03 ng/mL (< 0.04)
[2018-06-17] MEDS: Pantoprazole 40 MG VIAL IVP SCH (17:51)
[2018-06-17] MEDS ORDERED: Acetaminophen IV 1,000 MG/100 ML INFUS..BTL IVPB ONE (20:55)
[2018-06-18 00:53] LABS: Basophils % 0.4 %; Eosinophils # 0.1 K/mcL (0.0-0.6); Eosinophils % 1.1 %; Hematocrit 39.2 % (37.5-50.1); Immature Granulocytes % 0.4 % (0-4); Lymphocytes # 1.2 K/mcL (0.6-4.6); Lymphocytes % 21.7 %; Mean Corpuscular HGB Conc 34.9 g/dL (31.6-35.5); Mean Corpuscular Hemoglobin 30.8 pg (28.0-33.3); Mean Corpuscular Volume 88.1 fL (83.0-100.0); Mean Platelet Volume 11.6 fL (9.4-12.4); Monocytes # 0.7 K/mcL (0.0-1.3); Monocytes % 12.3 %; Neutrophils # 3.6 K/mcL (1.6-8.9); Platelet Count 131 K/mcL (140-400); Red Blood Count 4.45 M/mcL (4.19-5.50); Red Cell Distribution Width 14.1 % (11.5-14.5); Segmented Neutrophils % 64.1 %
[2018-06-18 00:57] LABS: Hemoglobin 13.7 g/dL (12.9-16.9)
[2018-06-18 01:26] LABS: Alanine Aminotransferase > 500 Units/L (7-52); Albumin 3.2 g/dL (3.5-5.7); Albumin/Globulin Ratio 1.1 (1.1-2.2); Alkaline Phosphatase 236 Units/L (34-104); Aspartate Amino Transferase 1494 Units/L (13-39); BUN/Creatinine Ratio 8 (6-26); Bilirubin,Direct 2.5 mg/dL (0.0-0.2); Bilirubin,Indirect 1.2 mg/dL (0.0-1.2); Bilirubin,Total 3.7 mg/dL (0.3-1.0); Blood Urea Nitrogen 6 mg/dL (6-20); Calcium 8.7 mg/dL (8.6-10.3); Carbon Dioxide 29 mEq/L (23-29); Chloride 102 mEq/L (98-107); Globulin 2.8 g/dL (2.4-3.5); Glucose 90 mg/dL (70-105); Osmolality,Calculated 277 (280-300); Potassium 3.5 mEq/L (3.5-5.1); Sodium 135 mEq/L (136-145); eGFR For Non-African Americans > 60 (> 60)
[2018-06-18 01:42] LABS: Hepatitis B Core IgM Nonreactive (Nonreactive); Hepatitis C Virus Antibody Nonreactive (Nonreactive)
[2018-06-18 01:47] LABS: Hepatitis A Antibody IgM Reactive (Nonreactive)
[2018-06-18 01:47] LABS: Platelet Estimate Slight Decrease (Normal); Reactive Lymphocytes Present (Not Present)
--- NOTE | 2018-06-18 06:34 | Electrocardiograph Report ---
[employer] [employer] Test Date: 2018-06-17 Pat Name: Fede Garcia Department: [id number] Room: 3A24 Gender: M Desktop Analyst: [facility] : 1965 Requested By: Michael Boothe Order Number: [id number] Reading MD: Sterling Espino Measurements Intervals [place] Rate: 85 P: 64 DE: 154 QRS: 6 QRSD: 90 T: 19 QT: 360 QTc: 402 Interpretive Statements SINUS RHYTHM PROBABLE INFERIOR MYOCARDIAL INFARCTION, PROBABLY OLD Electronically Signed On 06-18-2018 6:32:55 EDT by Sterling Espino
[2018-06-18] MEDS: Pantoprazole 40 MG VIAL IVP SCH (08:39)
[2018-06-18] MEDS ORDERED: Aspirin Enteric Coated 81 MG Tablet PO SCH (09:00)
[2018-06-18 11:24] VITALS: BP 127/78
--- NOTE | 2018-06-18 12:36 | Gastroenterology Consult Note ---
<SueFabrice garcia Najma - Last Filed: 06/18/18 12:33> Date of Encounter: 06/18/18 Time of Encounter: 11:10 - Assessment and plan (1) Hepatitis A Status: Acute Assessment and plan: Hepatitis A IgM positive. Hepatitis A virus infection is usually self-limited. Continue supportive care. Continue to monitor hepatic panel. Qualifiers: Hepatic coma status: without hepatic coma Qualified Code(s): B15.9 - Hepatitis A without hepatic coma (2) Elevated bilirubin Status: Acute Assessment and plan: Secondary to hepatitis A. RUQ US shows circumferential gallbladder wall thickening raises concern for cholecystitis. HIDA scan shows no activity seen in the common duct strongly suspicious for significant common duct obstruction. MRCP with no biliary ductal dilation, no evidence of choledocholithiasis. - Time Spent With Patient Total time spent is greater than 50% in coordination of care (as documented) at patient's floor/unit and/or counseling patient: GI History of Present Illness - Data of Consult Patient: new to practice Consult date: 06/18/18 Requesting Physician: Lior Moore - Consult Narrative Reason for consult: Elevated liver enzymes History of present illness: Mr. Garcia is a 53 year old male with PMHx of [place] who presented to the ED with c/o dizziness, nausea, vomiting. He does not remember exactly when his symptoms started but he reports having them for the past week. No epigastric or abdominal pain but he did have an episode of bilateral flank pain one week back prior to onset of his current symptoms. RUQ US shows circumferential gallbladder wall thickening raises concern for cholecystitis. HIDA scan shows no activity seen in the common duct strongly suspicious for significant common duct obstruction. MRCP with no biliary ductal dilation, no evidence of choledocholithiasis. Patient denies any drug use , recent sexual partners, or blood transfusions. Procedures: None NSAIDs: ASA Anticoagulation: None Past Med Surg Social Fam HX - Past Medical History Medical history: hypertension, myocardial infarction Psychiatric history: no psych history - Past Surgical History Surgical History: angioplasty/stent (x1) - Social History Smoking Status: Current every day smoker Packs per day: 1 Smokeless Tobacco Status: No Alcohol use: none Drug use: none - Family History Father Adopted: Yes Mother Adopted: Yes - Gastrointestinal Gastrointestinal: Present: as per HPI - Constitutional Constitutional: as per HPI - EENT Eyes: as per HPI Ears: Present: as per HPI Nose, mouth and throat: Present: as per HPI - Cardiovascular Cardiovascular ROS: Present: as per HPI - Respiratory Respiratory IM: Present: as per HPI - Genitourinary Genitourinary: Absent: change in color, Urinary frequency - Neurological ROS Neurological GI: Present: as per HPI - Hematologic/Lymphatic Hematologic/Lymphatic pediatric: Present: as per HPI - Musculoskeletal Musculoskeletal ROS GI: Present: as per HPI - Integumentary Integumentary GI: Present: as per HPI - Psychiatric ROS Psychiatric GI: Present: as per HPI - Endocrine Endocrine IM: Present: as per HPI - Constitutional Vitals: Temp Pulse Resp BP Pulse Ox 98.2 F 72 16 127/78 95 06/18/18 11:19 06/18/18 11:19 06/18/18 11:19 06/18/18 11:19 06/18/18 11:19 General appearance: Present: cooperative, A&O X 3, no acute distress, answers questions appropriately - Head Head exam: Present: atraumatic, normocephalic - Eye Eye exam: Present: scleral icterus - ENT ENT exam: Present: mucous membranes moist - Neck Neck exam general surgery: Present: normal inspection, trachea midline - Respiratory Respiratory exam: Present: CTAB. Absent: rales, rhonchi, wheezes - Cardiovascular Cardiovascular exam: Present: RRR, +S1, +S2 - GI/Abdominal GI/Abdominal exam: Present: soft, no peritoneal signs. Absent: distended, firm , guarding, tenderness - Rectal Rectal exam: Present: deferred - Extremities Exam Extremities exam: Present: warm - Neurological Exam Neurological exam: Present: no focal deficits - Psychiatric Psychiatric exam: Present: normal affect, normal mood - Skin Skin exam: Present: dry, intact, warm Additional comments: slight jaundice Results - Labs CBC & Chem 7: 06/18/18 00:21 06/18/18 00:21 Labs: Last Result Calcium 8.7 mg/dL (8.6-10.3) 06/18/18 00:21 Troponin I < 0.03 ng/mL (< 0.04) 06/18/18 00:21 Salicylates < 2.5 mg/dL (15.0-30.0) L 06/17/18 17:12 Entire Visit Hgb 13.7 g/dL (12.9-16.9) D 06/18/18 00:21 Hct 39.2 % (37.5-50.1) 06/18/18 00:21 Total Bilirubin 3.7 mg/dL (0.3-1.0) H 06/18/18 00:21 AST 1494 Units/L (13-39) H 06/18/18 00:21 ALT > 500 Units/L (7-52) H 06/18/18 00:21 Lipase 48 Units/L (11-82) 06/17/18 12:44 Acetaminophen < 10 mcg/mL (10-20) L 06/17/18 17:12 - Impressions Impressions Abdomen MRI 06/17/18 16:30 IMPRESSION: 1. Contracted gallbladder. Gallbladder wall thickening may be related to the contraction. However remote possibility of cholecystitis is not excluded. 2. No biliary ductal dilation. No evidence of choledocholithiasis. 3. Trace edema in the right upper quadrant. Correlate for reactive fluid related to duodenitis or possible pancreatitis. D/ / Arsalan Anglin MD / Arsalan Anglin MD Interpreting Provider: Arsalan Anglin MD Bile Acid Absorption NM 06/18/18 07:00 IMPRESSION: No activity seen in the common duct strongly suspicious for significant common duct obstruction. Cystic duct is patent RECOMMENDATIONS: ERCP for direct evaluation of the ampulla and common duct. D/ / Gilbert Appiah MD / Gilbert Appiah MD Interpreting Provider: Gilbert Appiah MD Consult Discharge Plan - Plan Instructions: Viral Hepatitis A (DC), Cellulitis (DC) Additional Instructions: Hold atorvastatin for 1 week and resume after that. If symptoms recur or if jaundice does not improve in 1 week, return to the ER or call your PCP. Referrals: [facility] [Outside] - 06/24/18 2:00 pm Prescriptions: cephALEXin [Keflex] 500 mg PO QID #28 capsule Lactobacillus Acidophilus [Acidophilus] 1 each PO BID #10 capsule <Danial,Uri - Last Filed: 06/30/18 04:21> Date of Encounter: 06/18/18 - Time Spent With Patient Total time spent is greater than 50% in coordination of care (as documented) at patient's floor/unit and/or counseling patient: GI History of Present Illness - Data of Consult Requesting Physician: Lior Moore - Consult Narrative History of present illness: Mr. Garcia is a 53 year old male - Constitutional Vitals: Temp Pulse Resp BP Pulse Ox 98.2 F 72 16 127/78 95 06/18/18 11:19 06/18/18 11:19 06/18/18 11:19 06/18/18 11:19 06/18/18 11:19 Results - Labs CBC & Chem 7: 06/18/18 00:21 06/18/18 00:21 Labs: Last Result Calcium 8.7 mg/dL (8.6-10.3) 06/18/18 00:21 Troponin I < 0.03 ng/mL (< 0.04) 06/18/18 00:21 Salicylates < 2.5 mg/dL (15.0-30.0) L 06/17/18 17:12 Entire Visit Hgb 13.7 g/dL (12.9-16.9) D 06/18/18 00:21 Hct 39.2 % (37.5-50.1) 06/18/18 00:21 Total Bilirubin 3.7 mg/dL (0.3-1.0) H 06/18/18 00:21 AST 1494 Units/L (13-39) H 06/18/18 00:21 ALT > 500 Units/L (7-52) H 06/18/18 00:21 Lipase 48 Units/L (11-82) 06/17/18 12:44 Acetaminophen < 10 mcg/mL (10-20) L 06/17/18 17:12 - Attending Attestation Mr Garcia presents with acute hepatitis A. His HIDA scan consistent with intrahepatic cholestasis. Does not have acute cholecystitis or choledocholithiasis. Recommend conservative supportive therapy and discharge once able to eat and maintain nutrition. All scans personally reviewed by me. Follow up as outpatient I have personally performed a face to face evaluation on this patient. I have reviewed and agree with the care plan. History and Exam by me shows:
--- NOTE | 2018-06-18 12:46 | Discharge Summary ---
- NOTES TO OUTPATIENT PROVIDER Notes to Outpatient Provider: Patient hospitalized after presenting to the ER with complaints of dizziness, nausea and vomiting. Workup showed elevated liver enzymes. Hepatitis viral panel positive for hep A IgM suggesting recent hepatitis A virus infection. Patient is feeling better today. Tolerating diet well. His liver enzymes are trending down. MRI of the abdomen and had a HIDA scan did not show any cholecystitis or choledocholithiasis. Patient will be discharged today. He will follow up with PCP after his discharge for further management Date of Encounter: 06/18/18 Time of Encounter: 12:59 - Discharge Diagnosis (1) Hepatitis A Priority: Primary Status: Acute Qualifiers: Hepatic coma status: without hepatic coma Qualified Code(s): B15.9 - Hepatitis A without hepatic coma (2) Hepatitis Priority: Secondary Status: Acute (3) Obstructive jaundice Priority: Secondary Status: Ruled-out (4) Chest pain Priority: Secondary Status: Resolved Qualifiers: Chest pain type: other chest pain Qualified Code(s): R07.89 - Other chest pain; R07.8 - Other chest pain (5) Cellulitis Priority: Secondary Status: Acute Qualifiers: Site of cellulitis: buttock Qualified Code(s): L03.317 - Cellulitis of buttock Hospital course: Mr. Garcia is a 53 year old male patient with history of coronary artery disease, prior [place] with a stent hospitalized after presenting to the ER with complaints of dizziness, nausea and vomiting. Workup showed elevated liver enzymes. Hepatitis viral panel positive for hep A IgM suggesting recent hepatitis A virus infection. Patient is feeling better today. Tolerating diet well. His liver enzymes are trending down. MRI of the abdomen and had a HIDA scan did not show any cholecystitis or choledocholithiasis. Patient will be discharged today. He will follow up with PCP after his discharge for further management. Patient also complained of intermittent chest pain occasionally prior to onset of his current symptoms. His troponins were trended And were negative. He did not have any chest pain during this hospital stay. He can follow up with his PCP for further management. Consider outpatient stress test. Discharge discussed with: patient, nurse, consultant electronics (32 min) - Time Spent with Patient Total time spent providing and/or coordinating discharge services: Greater than 30 minutes - Discharge Medications Prescriptions: cephALEXin [Keflex] 500 mg PO QID #28 capsule Lactobacillus Acidophilus [Acidophilus] 1 each PO BID #10 capsule Home Medications: Aspirin [Lo-Dose Aspirin EC] 81 mg PO DAILY 12/01/17 [History] Atorvastatin Calcium [Lipitor] 80 mg PO DAILY 12/01/17 [History] Pantoprazole Sodium [Protonix] 40 mg PO DAILY 12/01/17 [History] Lactobacillus Acidophilus [Acidophilus] 1 each PO BID #10 capsule 06/18/18 [Rx] cephALEXin [Keflex] 500 mg PO QID #28 capsule 06/18/18 [Rx] Allergies/Adverse Reactions: 3 Allergy/AdvReac Type Severity Reaction Status Date / Time No Known Allergies Allergy Verified 06/17/18 15:53 Date of admission: 06/17/18 16:22 Primary care physician: PCP NONE Discharging clinician: Edyta Cassidy Anticipated date of discharge: 06/18/18 - Constitutional Vitals: Temp Pulse Resp BP Pulse Ox 98.2 F 72 16 127/78 95 06/18/18 11:19 06/18/18 11:19 06/18/18 11:19 06/18/18 11:19 06/18/18 11:19 General appearance: Present: cooperative, A&O X 3, answers questions appropriately - Eye Eye exam: Present: scleral icterus - Neck Neck exam general surgery: Present: supple, trachea midline. Absent: lymphadenopathy - Respiratory Respiratory exam: Present: CTAB. Absent: accessory muscle use, rales, rhonchi, wheezes - Cardiovascular Cardiovascular exam: Present: RRR, +S1, +S2. Absent: diastolic murmur, gallop, rubs, systolic murmur - GI/Abdominal GI/Abdominal exam: Present: normal bowel sounds, soft, no peritoneal signs. Absent: distended, tenderness - Patient Status Disposition: Home, Self-Care Condition: Good Functional capacity at discharge: independent ambulation Overall status at discharge: patient is progressing back to baseline - Discharge Instructions Instructions: Viral Hepatitis A (DC), Cellulitis (DC) Follow Up With: [facility] [Outside] - 06/24/18 2:00 pm Additional Instructions: Hold atorvastatin for 1 week and resume after that. If symptoms recur or if jaundice does not improve in 1 week, return to the ER or call your PCP. - Diet and Activity Activity: increase activity as tolerated Diet: low fat, low cholesterol, low salt diet
== END 2018-06-18 14:29 | disposition home or self-care (01) ==
LOC: EMEROO 12:12 → 3ANU 12:12
PROVIDERS: ADMIT Internal Medicine; ATTEND Internal Medicine